=== PATIENT | male | born 1945 | race Two or more races ===

== ENCOUNTER 2017-01-02 04:43 | Inpatient (IN) | payer MEDICARE ==
[2016-12-28 12:07] VITALS: BMI 50.9
--- NOTE | 2017-01-01 09:53 | HP ---
HISTORY AND PHYSICAL Tres Yanez is a 71-year-old patient seen with symptomatic right knee osteoarthritis. After treatment options were discussed, he elected to proceed with right total knee arthroplasty. Consent was obtained. Medical clearance provided by Dr Scott. PAST MEDICAL HISTORY: Hyperlipidemia, asthma. PAST SURGICAL HISTORY: Appendectomy, cholecystectomy. DAILY MEDICATIONS: Aspirin, simvastatin. Spiriva inhaler. ALLERGIES: None reported. SOCIAL HISTORY: Patient denies tobacco use. PHYSICAL EXAMINATION: Evaluation of the right knee in the range of motion is -2/3 to 120 degrees. Tenderness medial joint line. Positive medial Sagrario's. Crepitus medial patellofemoral compartments with range of motion. Pain with patellofemoral compression. Genu varum alignment. Ligaments stable. Hip rotation without pain. Distal neurovascular exam intact. RADIOGRAPHS: Right knee radiographs revealed severe medial moderate patellofemoral compartment osteoarthritis. IMPRESSION: Right knee osteoarthritis. PLAN: Right total knee arthroplasty. Date of surgery 01/02/17. MMODL / IJN: [id number] /
[2017-01-02] MEDS ORDERED: TRANEXAMIC ACID 1,000 MG in SODIUM CHLORIDE 0.9% 100 ML IVPB ONE ×4 (05:00)
[2017-01-02] MEDS ORDERED: ACETAMINOPHEN TAB 500 MG TAB PO ONE (05:00)
[2017-01-02] MEDS ORDERED: ceFAZolin 3 GM in SODIUM CHLORIDE 0.9% 100 ML IVPB ONE (05:00)
[2017-01-02] MEDS ORDERED: MIDAZOLAM 2 MG/2 ML VIAL IV PRN (05:36)
[2017-01-02] MEDS ORDERED: ONDANSETRON 4 MG/2 ML VIAL IVP ONE (05:36)
[2017-01-02] MEDS ORDERED: DEXAMETHASONE SOD PHOSPHATE 10 MG/ML 1 ML VIAL IV ONE (05:36)
[2017-01-02] MEDS ORDERED: HYDROmorphone 1 MG/ML 1 ML SYRINGE IVP PRN ×4 (05:36→12:52)
[2017-01-02] MEDS: MELOXICAM 7.5 MG TAB PO ONE ×2 (08:38→14:23)
[2017-01-02] MEDS: LACTATED RINGERS 1,000 ML IV SCH ×2 (08:51→14:49)
[2017-01-02] MEDS ORDERED: ROPIVACAINE 1,100 MG, SODIUM CHLORIDE 0.9% 330 ML MISCELLANE PRN ×2 (09:26)
--- NOTE | 2017-01-02 09:28 | P.ONQ ---
Anesthesiology Proc Note - PNB - Peripheral Nerve Block Performed Right Adductor Canal Infusion Time Out Performed: Yes Procedure Start Time: :07 Procedure Stop Time: :18 Indication: Requested by physician (For post op pain) Sedation Type: Sedate with meaningful contact maintained Preparation: Sterile Dressing Position: Supine Catheter: Indwelling Needle Types: Bahman Needle Size: 80mm (3") Needle Gauge: 20 Technique: Ultrasound Injectate: 0.5% Ropivacaine (see comment for volume) (20 cc) Blood Aspirated: No Pain Paresthesia on Injection Noted: No
[2017-01-02] MEDS ORDERED: ROPIVACAINE 246.25 MG, EPINEPHrine 0.5 MG, KETOROLAC 30 MG, cloNIDine HCL/PF 80 MCG, WA... MISCELLANE ONE ×5 (09:50)
[2017-01-02] MEDS ORDERED: TRANEXAMIC ACID 1,000 MG/10 ML VIAL ONE (10:28)
[2017-01-02] MEDS ORDERED: diphenhydrAMINE 50 MG/ML 1 ML VIAL ONE (10:28)
[2017-01-02] MEDS ORDERED: MIDAZOLAM 2 MG/2 ML VIAL ONE (10:28)
[2017-01-02] MEDS ORDERED: fentaNYL (PF) 50 MCG/ML 2 ML AMP ONE (10:28)
[2017-01-02] MEDS ORDERED: SODIUM CHLORIDE 0.9% 100 ML BAG ONE (10:28)
[2017-01-02] MEDS ORDERED: ceFAZolin 3,000 MG in SODIUM CHLORIDE 0.9% IRRIGATIO 3,000 ML IRRIGATION ONE (11:10)
[2017-01-02] MEDS ORDERED: LACTATED RINGERS 1,000 ML IV ONE (12:39)
[2017-01-02] MEDS ORDERED: hydrOXYzine PAMOATE 25 MG CAP PO PRN (12:52)
[2017-01-02] MEDS ORDERED: NALOXONE 0.4 MG/ML 1 ML VIAL IV PRN (12:52)
[2017-01-02] MEDS ORDERED: HYDROcodone/APAP 7.5-325MG 1 EACH TAB PO PRN (12:52)
[2017-01-02] MEDS ORDERED: ONDANSETRON 4 MG/2 ML VIAL IVP PRN (12:52)
--- NOTE | 2017-01-02 12:52 | P.OP ---
Date of Procedure: 01/02/17 Preoperative Diagnosis: Right knee osteoarthritis Postoperative Diagnosis: Right knee osteoarthritis Procedure(s) Performed: Right total knee arthroplasty Implants: 1. Tavia persona right size 11 narrow cruciate retaining cemented femur 2. Tavia persona right size G cemented tibia 3. Tavia persona 10 mm medial congruent polyethylene tibial insert 4. Tavia persona 38 mm all polyethylene cemented patella Anesthesia: regional (Adductor canal catheter), local, spinal Surgeon: New Rodrigues Program Director Group Work #1: Abraham Santacruz Estimated Blood Loss (ml): 100 Pathology: other (Bone) Condition: stable Disposition: PACU Indications for Procedure: 71-year-old patient seen with symptomatic right knee osteoarthritis. After treatment options were discussed, he elected to proceed with right total knee arthroplasty. Operative Findings: see description of procedure Description of Procedure: Patient was taken to the operative suite after having an adductor canal catheter placed by the department anesthesia. Patient underwent a spinal anesthetic by the department of anesthesia. Patient was given preoperative IV intake antibiotics and TXA. A well-padded tourniquet was placed about the right lower extremity. The lower extremity was then prepped and draped in the normal sterile orthopedic fashion. The extremity was elevated, a tourniquet was insufflated to 350. A standard anterior incision was made sharply through skin. Dissection was taken down through the subcutaneous soft tissues down to the extensor mechanism. A medial arthrotomy was performed, patella was everted and knee was flexed. There was advanced osteoarthritis noted. A proximal tibial cutting guide was positioned. Proximal tibial cut was made. A distal intramedullary femoral cutting guide was positioned, distal femoral cut made. We placed the appropriate sizing guide and selected the appropriate size. A distal 4-in-1 femoral cutting block was positioned, distal femoral cuts were made. We now placed a trial femoral component into position, along with an appropriate size tibial tray and insert. We now took the knee through range of motion and had full extension good flexion and good overall soft tissue balance noted. The patella was everted and a flush cut made with patellar quad tendon. We templated the patella, appropriate drill holes were made. An appropriate trial patella was positioned, knee was taken through full range of motion with the patella tracking very nicely. The trial patella was removed. Drill holes were made through the femoral component. All trial components were removed after marking off the appropriate rotation of the tibia. Retractors were now positioned along the proximal tibia. An appropriate keel punch was made with the appropriate size tibial guide. At this point appropriate size implants were chosen and opened. The joint was irrigated copiously with pulse lavage mechanical irrigation. The deep soft tissues were infiltrated with local analgesic. We mixed antibiotic methylmethacrylate. Once the methyl methacrylate was ready, the tibial component was cemented into place removing any excess methylmethacrylate. The femoral component was cemented into place removing the removing any excess methylmethacrylate. We then inserted the appropriate size polyethylene tibial insert. We made sure that it was locked into position. We took the knee into full extension, and then back in a flexion making sure we had removed any excess methylmethacrylate. The patellar component was then cemented down and secured with clamp. Excess methylmethacrylate removed. We kept the knee in full extension, patellar clamp in position until methylmethacrylate had hardened. Once it had hardened the patellar clamp was removed. The knee was taken through full range of motion. The patella tracked nicely. There was good soft tissue balancing. The tourniquet was now released. Additional hemostasis was achieved via electrocautery. The wound was irrigated with pulse lavage mechanical irrigation. A second gram of TXA was given. The extensor mechanism was repaired with Vicryl. We checked the repair with range of motion and it was stable. The subcutaneous soft tissues were repaired with Vicryl in layers. The skin was approximated with pernio/Dermabond. Sterile dressings were applied followed by loose web roll and Kenrick bandage. The patient was transferred to a bed, and taken to recovery in stable and satisfactory condition. Francesco QUIROS assisted with the procedure.
--- NOTE | 2017-01-02 13:56 | XR ---
EXAMINATION TYPE: XR knee limited RT DATE OF EXAM: 01/02/2017 COMPARISON: NONE HISTORY: 71-year-old male evaluation for postoperative abnormality and alignment TECHNIQUE: Portable 2 views FINDINGS: Images show placement of right total knee arthroplasty. Both distal femoral and proximal tibial compo nents of the prosthesis are well seated without periprosthetic fracture. Anterior soft tissue swellin g with soft tissue gas as well as small amount of intra-articular air relating to recent operation. A lignment is grossly anatomic. IMPRESSION: Uncomplicated postoperative appearance right total knee arthroplasty.
[2017-01-02] MEDS: traMADol 50 MG TAB PO SCH ×3 (14:24→23:01)
[2017-01-02] MEDS: ceFAZolin 3 GM in SODIUM CHLORIDE 0.9% 100 ML IVPB SCH ×2 (16:33→23:02)
[2017-01-02] MEDS: ALBUTEROL NEBULIZED 2.5 MG/3 ML INHALATION PRN (19:32)
[2017-01-02] MEDS: SENNOSIDES-DOCUSATE SODIUM 1 EACH TAB PO SCH (20:04)
[2017-01-02] MEDS: ATORVASTATIN 10 MG TAB PO SCH (20:04)
[2017-01-03] MEDS: LACTATED RINGERS 1,000 ML IV SCH ×3 (01:42→16:49)
[2017-01-03] MEDS: HYDROcodone/APAP 7.5-325MG 1 EACH TAB PO PRN ×2 (05:47→16:54)
[2017-01-03 07:22] LABS: Basophils % (A) 0 %; CH 26.7; CHCM 30.6; Eosinophils % (A) 0 %; HCT 43.1 % (39.0-53.0); HDW 2.35; HGB 13.2 gm/dL (13.0-17.5); Hypochromasia Slight; Luc # (Auto) 0.19; Luc % (Auto) 2; Lymphocytes # (A) 1.7 k/uL (1.0-4.8); Lymphocytes % (A) 16 %; MCH 26.8 pg (25.0-35.0); MCHC 30.6 g/dL (31.0-37.0); MCV 87.5 fL (80.0-100.0); Mean Platelet Volume 7.3; Monocytes # (A) 0.6 k/uL (0-1.0); Monocytes % (A) 6 %; Neutrophils # (A) 7.8 k/uL (1.3-7.7); Neutrophils % (A) 76 %; RBC 4.92 m/uL (4.30-5.90); RDW 13.9 % (11.5-15.5); WBC 10.2 k/uL (3.8-10.6); WBC (Perox) 10.46
--- NOTE | 2017-01-03 07:22 | CONS ---
CONSULTATION DATE OF CONSULTATION: January 02, 2017. REASON FOR CONSULTATION: Medical management requested by Dr. Rodrigues. CONSULTATION: This is a very pleasant 71-year-old patient of Dr. Scott. The patient has undergone a right total knee arthroplasty. Some pain is present. Chronic stable medical conditions include COPD, hyperlipidemia, arthritis in the left knee. Patient did tolerate supper. Denies any cardiac history. REVIEW OF SYSTEMS: CONSTITUTIONAL: None. HEENT none. Respiratory occasional short of breath. Cardiovascular none. Gastrointestinal none. Genitourinary: None. MUSCULOSKELETAL: Pain in the joints, especially in left knee. Dermatologic, hematologic, lymphatics none. Psychiatry none. Neurological none. PAST MEDICAL HISTORY: COPD, hyperlipidemia, osteoarthritis. PAST SURGICAL HISTORY: Appendectomy, cholecystectomy, tonsillectomy. SOCIAL HISTORY: The patient smoked a pack a day for 20 years stopped 25 years ago. . 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 FAMILY HISTORY: Cancer, type unknown. HOME MEDICATIONS: 1. Spiriva 1 capsule p.o. daily. 2. Zocor 20 mg q.h.s. 3. Aspirin 81 mg p.o. daily. 4. Ventolin HFA 1-2 puffs q.i.d. p.r.n. ALLERGIES: None. PHYSICAL EXAMINATION: Temperature 97.6, pulse 85, respiratory 18, blood pressure 110/72, pulse ox 93% on room air. General appearance propped up lying in bed. BMI 50.9. Eyes pupils equal. Conjunctivae normal. HEENT: Oral cavity normal. Neck short thick. JVD unable to assess. Mass not palpable. Respiratory effort normal. Lungs distant breath sounds. HEART: Sounds muffled no edema. Abdomen distended soft, liver spleen not palpable. Lymphatics: No lymph nodes palpable in neck or axillae. Psychiatry: Alert and oriented times three. Mood and affect normal. Neurological pupils equal. Cranial nerves grossly intact. Power and sensation grossly intact. Extremities right knee with dressing in place. INVESTIGATIONS: No blood work. ASSESSMENT: 1. Right total knee arthroplasty. 2. Chronic obstructive pulmonary disease in an ex-smoker. 3. Hyperlipidemia. 4. Primary osteoarthritis especially of the left knee. 5. Morbid obesity BMI 50.9. PLAN: Patient's home medications are resumed. Patient is getting Lovenox for DVT prophylaxis per Dr. Rodrigues. The patient should see a dietitian for weight loss measures. Thank you Dr. Rodrigues. Copy to Dr. Scott. MMELVIAL / HERBERTN: [id number] /
[2017-01-03] MEDS: ENOXAPARIN 30 MG/0.3 ML SYRINGE SQ SCH ×2 (08:12→20:00)
[2017-01-03] MEDS: traMADol 50 MG TAB PO SCH ×4 (08:13→21:17)
[2017-01-03] MEDS: FAMOTIDINE 20 MG TAB PO SCH (08:13)
[2017-01-03] MEDS: ASPIRIN 81 MG PO SCH (08:13)
[2017-01-03] MEDS: MULTIVITAMINS, THERA 1 EACH TAB PO SCH (08:14)
[2017-01-03] MEDS: IPRATROPIUM 0.5 MG/2.5 ML NEBU INHALATION SCH ×4 (08:50→20:04)
--- NOTE | 2017-01-03 08:55 | P.PN ---
Progress Note - Text Progress Note Date: 01/03/17 71-year-old male status post status post right total knee replacement postoperative day #1 postoperative day #2 he had a right adductor canal catheter patient was up in bed feeling comfortable low concerns and complaints overnight the VAS score of 0/10 now itching and no pain
--- NOTE | 2017-01-03 12:31 | PN ---
PROGRESS NOTE DATE OF SERVICE: 01/03/2017 PRESENTING COMPLAINT: Knee surgery. INTERVAL HISTORY: Patient is status post right knee surgery. Some pain is present. Did work with physical therapy. No nausea, vomiting, did tolerate her breakfast, sitting up on a chair. REVIEW OF SYSTEMS: Done for constitutional, cardiovascular, GI, pulmonary, musculoskeletal; relevant findings as above. CURRENT MEDICATIONS: Reviewed. PHYSICAL EXAMINATION: On examination, afebrile, pulse 82, respirations 18, blood pressure 108/71, pulse ox 93% room air. GENERAL APPEARANCE: Sitting up in a chair, comfortable. EYES: Pupils equal, conjunctivae normal. NECK: JVD not raised. Mass not palpable. RESPIRATORY: Effort normal. LUNGS: Distant breath sounds. CARDIOVASCULAR: Heart sounds muffled, no edema. ABDOMEN: Soft, nontender. Liver and spleen not palpable. PSYCHIATRY: Alert and oriented x3. Mood and affect normal. MUSCULOSKELETAL: Right knee in a dressing. INVESTIGATIONS: White count 10.2, hemoglobin 13.2. ASSESSMENT: 1. Right total knee arthroplasty. 2. Chronic obstructive pulmonary disease in an ex-smoker. 3. Hyperlipidemia. 4. Primary osteoarthritis especially of the left knee. 5. Morbid obesity, body mass index of 50.9. PLAN: Continue current medication and treatment plan. Will follow. Thank you, Dr. Rodrigues. CLARICEL / HERBERTN: [id number] /
--- NOTE | 2017-01-03 13:02 | P.PN ---
Subjective Progress Note Date: 01/03/17 Principal diagnosis: Status post right total knee arthroplasty Patient is seen today resting in his hospital bed, his family is present at bedside. He is ambulating with therapy. The urinary cath was discontinued. Patient's pain is controlled at this time. Denies any headaches, lightheadedness, chest pain, shortness of breath. Objective - Vital Signs Vital signs: Vital Signs Temp 97.6 F 01/03/17 07:00 Pulse 76 01/03/17 09:01 Resp 18 01/03/17 07:00 BP 108/71 01/03/17 07:00 Pulse Ox 93 L 01/03/17 07:00 Intake & Output 01/02/17 01/03/17 01/03/17 18:59 06:59 18:59 Intake Total 1251 2100 180 Output Total 465 900 300 Balance 786 1200 -120 Weight 151.953 kg Intake: IV 1251 Intake, IV Titration 1100 Amount Lactated Ringers 1,000 ml 1000 @ 80 mls/hr IV .[id number] J CARLOS Rx#:[id number] ceFAZolin 3 gm In Sodium 100 Chloride 0.9% 100 ml @ 100 mls/hr IVPB Q8HR J CARLOS Rx#:[id number] Oral 1000 180 Output: Urine 365 900 300 Uretheral (Gaffney) 300 Estimated Blood Loss 100 Other: Voiding Method Indwelling Catheter Indwelling Catheter - Exam Right lower extremity: Incision is clean, dry, and intact. The prineo tape is in good condition. There is minimal soft tissue swelling and ecchymosis surrounding the medial and lateral aspects of the incision. Calf is soft, no tenderness with palpation. Plantar flexion, dorsiflexion, EHL, FHL are intact. Sensory exam to light touch throughout the extremity is intact, dorsal pedis pulses 2+. - Labs CBC & Chem 7: 01/03/17 06:26 Labs: Abnormal Lab Results - Last 24 Hours (Table) 01/03/17 Range/Units 06:26 MCHC 30.6 L (31.0-37.0) g/dL Neutrophils # 7.8 H (1.3-7.7) k/uL Assessment and Plan Plan: Assessment: 1. Postop day #1 status post right total knee arthroplasty Plan: 1. Pain control, continue use of oral medication 2. GI and DVT prophylaxis, checking on Xarelto co-pay for discharge 3. Daily dressing changes/ice and elevate 4. Continue work physical therapy 5. Medical recommendations 6. Discharge planning: Patient may be discharged home today Time with Patient: Less than 30
[2017-01-03] MEDS: ALBUTEROL NEBULIZED 2.5 MG/3 ML INHALATION PRN ×2 (16:38→20:04)
[2017-01-03] MEDS: SENNOSIDES-DOCUSATE SODIUM 1 EACH TAB PO SCH (20:00)
[2017-01-03] MEDS: ATORVASTATIN 10 MG TAB PO SCH (20:00)
[2017-01-04] MEDS ORDERED: HYDROcodone/APAP 7.5-325MG 1 EACH TAB ONE (01:00)
[2017-01-04] MEDS: LACTATED RINGERS 1,000 ML IV SCH ×3 (03:49→17:06)
[2017-01-04] MEDS: HYDROcodone/APAP 7.5-325MG 1 EACH TAB PO PRN ×2 (06:06→13:47)
[2017-01-04] MEDS: IPRATROPIUM 0.5 MG/2.5 ML NEBU INHALATION SCH ×4 (08:46→20:18)
[2017-01-04] MEDS: traMADol 50 MG TAB PO SCH ×4 (09:16→21:30)
[2017-01-04] MEDS: ASPIRIN 81 MG PO SCH (09:16)
[2017-01-04] MEDS: FAMOTIDINE 20 MG TAB PO SCH (09:17)
[2017-01-04] MEDS: ENOXAPARIN 30 MG/0.3 ML SYRINGE SQ SCH ×2 (09:19→21:31)
[2017-01-04] MEDS: MULTIVITAMINS, THERA 1 EACH TAB PO SCH (12:34)
--- NOTE | 2017-01-04 12:35 | P.PN ---
Subjective Progress Note Date: 01/04/17 Principal diagnosis: Status post right total knee arthroplasty Patient is seen today resting in his hospital bed, his family is present at bedside. He is ambulating with therapy. Patient's pain is controlled at this time. Denies any headaches, lightheadedness, chest pain, shortness of breath. Objective - Vital Signs Vital signs: Vital Signs Temp 97.1 F L 01/04/17 08:09 Pulse 88 01/04/17 09:59 Resp 18 01/04/17 09:59 BP 123/82 01/04/17 08:09 Pulse Ox 94 L 01/04/17 08:09 Intake & Output 01/03/17 01/04/17 01/04/17 18:59 06:59 18:59 Intake Total 540 900 400 Output Total 300 300 Balance 240 600 400 Intake: Oral 540 900 400 Output: Urine 300 300 Uretheral (Gaffney) 300 Other: Voiding Method Indwelling Catheter Urinal Urinal # Voids 600 - Exam Right lower extremity: Incision is clean, dry, and intact. The prineo tape is in good condition. There is minimal soft tissue swelling and ecchymosis surrounding the medial and lateral aspects of the incision. Calf is soft, no tenderness with palpation. Plantar flexion, dorsiflexion, EHL, FHL are intact. Sensory exam to light touch throughout the extremity is intact, dorsal pedis pulses 2+. - Labs CBC & Chem 7: 01/03/17 06:26 Assessment and Plan Plan: Assessment: 1. Postop day #2 status post right total knee arthroplasty Plan: 1. Pain control, continue use of oral medication 2. GI and DVT prophylaxis, checking on Xarelto co-pay for discharge 3. Daily dressing changes/ice and elevate 4. Continue work physical therapy 5. Medical recommendations 6. Discharge planning: Patient may be discharged home tomorrow, possibly rehab Time with Patient: Less than 30
[2017-01-04] MEDS: ALBUTEROL NEBULIZED 2.5 MG/3 ML INHALATION PRN ×2 (16:07→20:19)
--- NOTE | 2017-01-04 18:30 | P.PN ---
Progress Note - Text Progress Note Date: 01/04/17 DATE OF SERVICE: 01/04/2017 PRESENTING COMPLAINT: The surgery HISTORY OF PRESENT ILLNESS: 71-year-old male status post right knee surgery. INTERVAL HISTORY: 01/04/2017: Patient lying in bed appears comfortable continues to have some right knee pain but is improving. Agreeable to work with physical therapy. No complaints of nausea or vomiting, tolerating his breakfast ate 100%. REVIEW OF SYSTEMS: Done for constitutional ,cardiovascular, GI, pulmonary with relevant findings as above. CURRENT MEDICATIONS [place], aspirin, Lipitor, Lovenox, Pepcid, ropivacaine, Senokot-S, Ultram. PHYSICAL EXAM VITAL SIGNS: Temperature 97.1, pulse 88, respiratory rate 18, blood pressure 123/82, oxygen saturation 94% on room air. GENERAL APPEARANCE: Lying in bed, not in distress. EYES: Pupils equal. Conjunctiva normal. NECK: JVD not raised. Mass not palpable. RESPIRATORY: Respiratory effort normal. Lungs diminished to auscultation. CARDIOVASCULAR: First and second sounds normal. No edema. ABDOMEN: Soft. Liver and spleen not palpable. No tenderness. No mass palpable. PSYCHIATRY: Alert and oriented x3. Mood and affect normal. MUSCULOSKELETAL: Right knee incision covered with a dry dressing mild swelling noted. INVESTIGATIONS: LABS: None new ASSESSMENT: -Right total knee arthroplasty. -Chronic obstructive pulmonary disease in an ex-smoker. -Hyperlipidemia. -Primary osteoarthritis especially of the left knee. -Morbid obesity body mass index of 50.9. PLAN: Continue working with physical therapy, discharge planning for home or rehab. Continue current Medication and treatment plan. We'll follow HIGH SCHOOL DIRECTOR statement: Patient was seen and examined by nurse practitioner Shalonda Cristobal and all elements of the case discussed with attending Dr. Paige
[2017-01-04] MEDS: SENNOSIDES-DOCUSATE SODIUM 1 EACH TAB PO SCH (21:30)
[2017-01-04] MEDS: ATORVASTATIN 10 MG TAB PO SCH (21:30)
--- NOTE | 2017-01-04 22:36 | PN ---
PROGRESS NOTE DATE OF SERVICE: 01/04/2017. ATTENDING NOTE: The patient seen and examined by me. I discussed with my nurse practitioner, Ms. Cristobal. The patient is comfortable. Pain is controlled. Breathing is stable. EXAMINATION: Afebrile, pulse, respiratory 18, blood pressure 123/82. LUNGS: Slightly decreased. CARDIOVASCULAR: First and second sounds normal. White count 10.2. ASSESSMENT: 1. Right total knee arthroplasty. 2. Chronic obstructive pulmonary disease. PLAN: Continue medication and treatment plan. The patient is stable. MMODL / IJN: [id number] /
[2017-01-05] MEDS: HYDROcodone/APAP 7.5-325MG 1 EACH TAB PO PRN ×2 (00:04→06:36)
[2017-01-05 01:42] VITALS: BP 157/51; RESP 17; TEMP 98.5
[2017-01-05] MEDS: LACTATED RINGERS 1,000 ML IV SCH ×2 (04:35)
[2017-01-05 07:23] LABS: Basophils # (A) 0.1 k/uL (0-0.2); Basophils % (A) 1 %; CH 26.1; CHCM 30.9; Eosinophils # (A) 0.2 k/uL (0-0.7); Eosinophils % (A) 2 %; HCT 38.3 % (39.0-53.0); HDW 2.36; HGB 12.3 gm/dL (13.0-17.5); Hypochromasia Slight; Luc # (Auto) 0.07; Luc % (Auto) 1; Lymphocytes # (A) 2.4 k/uL (1.0-4.8); Lymphocytes % (A) 29 %; MCH 27.4 pg (25.0-35.0); MCHC 32.2 g/dL (31.0-37.0); Monocytes # (A) 0.5 k/uL (0-1.0); Monocytes % (A) 6 %; Neutrophils # (A) 5.2 k/uL (1.3-7.7); Neutrophils % (A) 62 %; RDW 15.2 % (11.5-15.5); WBC 8.5 k/uL (3.8-10.6); WBC (Perox) 8.25
[2017-01-05] MEDS: IPRATROPIUM 0.5 MG/2.5 ML NEBU INHALATION SCH ×2 (08:06→11:39)
[2017-01-05] MEDS ORDERED: HYDROmorphone 0.5 MG/0.5 ML SYRINGE IVP PRN ×3 (08:50→08:51)
[2017-01-05] MEDS: ASPIRIN 81 MG PO SCH (09:04)
[2017-01-05] MEDS: traMADol 50 MG TAB PO SCH ×2 (09:04→13:49)
[2017-01-05] MEDS: FAMOTIDINE 20 MG TAB PO SCH (09:04)
[2017-01-05] MEDS: ENOXAPARIN 30 MG/0.3 ML SYRINGE SQ SCH (09:04)
[2017-01-05] MEDS: MULTIVITAMINS, THERA 1 EACH TAB PO SCH (09:04)
[2017-01-05 11:50] VITALS: PULSE 80
--- NOTE | 2017-01-05 12:36 | P.PN ---
Subjective Progress Note Date: 01/05/17 Principal diagnosis: Status post right total knee arthroplasty Patient is seen today resting in his hospital bed, his family is present at bedside. Patient's pain is controlled at this time. Denies any headaches, lightheadedness, chest pain, shortness of breath. Objective - Vital Signs Vital signs: Vital Signs Temp 98.5 F 01/05/17 00:20 Pulse 80 01/05/17 11:49 Resp 17 01/05/17 00:20 BP 157/51 01/05/17 00:20 Pulse Ox 91 L 01/05/17 00:20 Intake & Output 01/04/17 01/05/17 01/05/17 18:59 06:59 18:59 Intake Total 400 250 Output Total 1150 Balance 400 -1150 250 Intake: Oral 400 250 Output: Urine 1150 Other: Voiding Method Urinal Urinal # Voids 2 1 - Exam Right lower extremity: Incision is clean, dry, and intact. The prineo tape is in good condition. There is minimal soft tissue swelling and ecchymosis surrounding the medial and lateral aspects of the incision. Calf is soft, no tenderness with palpation. Plantar flexion, dorsiflexion, EHL, FHL are intact. Sensory exam to light touch throughout the extremity is intact, dorsal pedis pulses 2+. - Labs CBC & Chem 7: 01/05/17 06:29 Labs: Abnormal Lab Results - Last 24 Hours (Table) 01/05/17 Range/Units 06:29 Hgb 12.3 L (13.0-17.5) gm/dL Hct 38.3 L (39.0-53.0) % Assessment and Plan Plan: Assessment: 1. Postop day #3 status post right total knee arthroplasty Plan: 1. Pain control, continue use of oral medication 2. GI and DVT prophylaxis, Xarelto 10 mg after discharge 3. Daily dressing changes/ice and elevate 4. Continue work physical therapy 5. Medical recommendations 6. Discharge planning: Patient may be discharged home today Time with Patient: Less than 30
--- NOTE | 2017-01-05 12:37 | P.DS ---
Providers Date of admission: 01/02/17 08:12 Expected date of discharge: 01/05/17 Attending physician: New Rodrigues Consults: 01/02/17 12:52 Consult Physician Routine Consulting Provider: Gonzalo Paige Consult Reason/Comments: Medical management Do you want consulting provider notified?: Yes Primary care physician: [place] [facility] Course: Date of admission: 01/02/2017 Date of discharge: 01/05/2017 Admission diagnosis: Status post right total knee arthroplasty Discharge diagnosis: Same Attending physician: Dr. Rodrigues Surgical procedures: Right total knee arthroplasty Brief history: Patient is a 71-year-old male with a history of progressive primary right knee osteoarthritis. At this point patient has failed conservative treatment measures and has opted to proceed with a elective right total knee arthroplasty. Hospital course: Details of patient's surgery can be found in operative report. Patient tolerated the procedure well and was subsequently transported to orthopedic floor. Patient's orthopeidc and medical care was provided daily. Patient had daily laboratory tests performed for evaluation of overall blood counts. Patient had daily physical therapy to include strengthening range of motion as well as education with walker ambulation. Patient had daily CPM usage as part of their physical therapy program. Patient was treated with Lovenox for their postoperative DVT prophylaxis during their inpatient stay. Patient was noted to have a relatively uneventful postoperative course. Patient reported satisfactory pain control with oral pain medications by postoperative day 0. Patient showed satisfactory progress with physical therapy. Patient moved steadily through the program and had no difficulty meeting the goals by postoperative day 3. Given patient's otherwise satisfactory course and having met physical therapy goals, plan is to discharge patient to home on postoperative day 3. Discharge condition/disposition: Patient will be discharged home in stable condition. Discharge medications: Instructions are given on resumption of patient's normal daily medications per primary care recommendation, in addition patient will be prescribed Alma 7.5 mg/325 mg, tramadol 50 mg, Colace 100 mg, Pepcid 20 mg, Xarelto 10 mg. Discharge instructions: 1. Wound care and infection precautions, keep incision dry and covered while showering, no lotions, creams, moisturizers. No soaking, tubs, pools, hottubs. Do not scrub over the incision. 2. Weight-bear as tolerated with walker / cane until follow-up. 3. Ice and elevate when necessary. Do not exceed 20 minutes per hour with ice pack. 4. Utilize compression sleeve until seen at first follow up appointment. 5. Visiting nursing care. 6. Home physical therapy including home CPM. 7. Pain meds and anticoagulants per prescription. 8. Pain medication has potential to cause constipation. Increase oral fluid and fiber intake. Contact primary care provider if you have not had a bowel movement within 48 hours after discharge 9. No anti-inflammatory medication until discussed at first post operative visit, this including Motrin, Aleve, Mobic, Diclofenac. 10. Follow up in office at 2 weeks postop with Francesco Santacruz PA-C 11. Follow up with your primary care doctor 7-10 days after discharge. 12. Contact [facility] with any questions, . Procedures: Right total knee arthroplasty Patient Condition at Discharge: Good Plan - Discharge Summary Discharge Rx Participant: Yes New Discharge Prescriptions: New Rivaroxaban [Xarelto] 10 mg PO DAILY #12 tab Docusate [Colace] 100 mg PO DAILY #30 capsule Famotidine [Pepcid] 20 mg PO DAILY #30 tablet HYDROcodone/APAP 7.5-325MG [[place] 7.5] 1 - 2 each PO Q6HR PRN #60 tab PRN Reason: Pain traMADol HCl [Ultram] 50 mg PO Q6H PRN #40 tab PRN Reason: Pain No Action Tiotropium 18 Mcg/Puff [Spiriva] 1 cap INHALATION RT-DAILY Albuterol Inhaler [Ventolin Hfa Inhaler] 1 - 2 puff INHALATION RT-QID PRN PRN Reason: Dyspnea Simvastatin [Zocor] 20 mg PO HS Aspirin 81 mg PO DAILY Discharge Medication List Albuterol Inhaler [Ventolin Hfa Inhaler] 1 - 2 puff INHALATION RT-QID PRN [History] Aspirin 81 mg PO DAILY 12/28/16 [History] Simvastatin [Zocor] 20 mg PO HS 12/28/16 [History] Tiotropium 18 Mcg/Puff [Spiriva] 1 cap INHALATION RT-DAILY 12/28/16 [History] Rivaroxaban [Xarelto] 10 mg PO DAILY #12 tab 01/03/17 [Rx] Docusate [Colace] 100 mg PO DAILY #30 capsule 01/05/17 [Rx] Famotidine [Pepcid] 20 mg PO DAILY #30 tablet 01/05/17 [Rx] HYDROcodone/APAP 7.5-325MG [[place] 7.5] 1 - 2 each PO Q6HR PRN #60 tab 01/05/17 [ Rx] traMADol HCl [Ultram] 50 mg PO Q6H PRN #40 tab 01/05/17 [Rx] Follow up Appointment(s)/Referral(s): [facility], [NON-STAFF] - As Needed Silver Scott MD [Primary Care Provider] - 1 Week Abraham Santacruz PAC [PHYSICIAN FIELD TECHNICAL SPECIALIST] - 2 Weeks Patient Instructions/Handouts: Knee Replacement (DC) Activity/Diet/Wound Care/Special Instructions: Orthopedic Discharge Instructions: 1. Wound care and infection precautions, keep incision dry and covered while showering, no lotions, creams, moisturizers. No soaking, pools, hot tubs. Do not scrub over incision. 2. Weight-bear as tolerated with walker / cane until follow-up. 3. Ice and elevate when necessary. Do not exceed 20 minutes per hour with ice pack. 4. Utilize compression sleeve until seen at first follow up appointment. 5. Visiting nursing care. 6. Home physical therapy including home CPM. 7. Pain meds and anticoagulants per prescription. 8. Pain medication has potential to cause constipation. Increase oral fluid and fiber intake. Contact primary care provider if you have not had a bowel movement within 48 hours after discharge. 9. No anti-inflammatory medication until discussed at first post operative visit, this including Motrin, Aleve, Mobic, Diclofenac. 10. Follow up in office at 2 weeks postop with Francesco Santacruz PA-C 11. Follow up with your primary care doctor 7-10 days after discharge. 12. Contact [facility] with any questions, . Discharge Disposition: HOME WITH HOME HEALTH SERVICES
--- NOTE | 2017-01-05 17:37 | PN ---
PROGRESS NOTE DATE OF SERVICE: January 05, 2017. PRESENTING COMPLAINT: Knee surgery. INTERVAL HISTORY: Patient status post knee surgery. Pain is controlled. No nausea, vomiting, did work with therapy. Keen to go home. No new issues. REVIEW OF SYSTEMS: Done for constitutional, cardiovascular, GI, pulmonary, musculoskeletal; relevant findings as above. CURRENT MEDICATIONS: Reviewed. PHYSICAL EXAMINATION: Temperature 98.5, pulse 94, respiration 16, blood pressure 127/51, pulse ox 91% on room air. GENERAL APPEARANCE: Sitting up comfortable. EYES: Pupils equal. Conjunctivae normal. Neck JVD unable to assess. Mass not palpable. Respiratory effort normal. Lungs distant breath sounds. Cardiovascular first and second sounds normal. No edema. ABDOMEN: Soft, nontender. Liver and spleen not palpable. Psychiatry: Alert and oriented x3. Mood and affect normal. INVESTIGATIONS: White count 8.5. ASSESSMENT: 1. Right total knee arthroplasty. 2. Chronic obstructive pulmonary disease in an ex-smoker. 3. Hyperlipidemia. 4. Primary osteoarthritis especially of the left knee. 5. Morbid obesity, BMI 50.9. PLAN: Patient doing well. Have discharged. Follow with the family doctor. MMODL / IJN: [id number] /
== END 2017-01-05 16:44 | disposition home health service (06) | DRG 470 ==
LOC: 2ORMAIN 08:12 → 3SUR 13:49
PROVIDERS: ADMIT Orthopaedic Surgery; ATTEND Orthopaedic Surgery
PROC: 0SRC0J9 Replacement of Right Knee Joint with Synthetic Substitute, Cemented, Open Approach (ICD-10-PCS; principal; 2017-01-02 10:20)
DX: M17.11 Unilateral primary osteoarthritis, right knee (principal); E66.01 Morbid (severe) obesity due to excess calories; J44.9 Chronic obstructive pulmonary disease, unspecified; E78.5 Hyperlipidemia, unspecified; Z79.82 Long term (current) use of aspirin; Z79.899 Other long term (current) drug therapy; Z87.891 Personal history of nicotine dependence; Z79.51 Long term (current) use of inhaled steroids
CPT/HCPCS: 85025; 88300; 94640; 94760

== ENCOUNTER 2021-06-13 19:20 | Inpatient (IN) | payer MEDICARE ==
--- NOTE | 2021-06-13 21:04 | XR ---
EXAMINATION TYPE: XR chest 2V DATE OF EXAM: 06/13/2021 COMPARISON: NONE HISTORY: TECHNIQUE: 2 views FINDINGS: There is no heart failure nor confluent pneumonic infiltrate. Costophrenic angles are clear . There are no hilar masses. IMPRESSION: No active cardiopulmonary disease.
[2021-06-13] MEDS ORDERED: DILTIAZEM DRIP BOLUS FROM BAG 1 MG SOLN IV ONE (23:09)
--- NOTE | 2021-06-13 23:12 | ED ---
General Adult HPI - General Chief complaint: Shortness of Breath Stated complaint: SOB Time Seen by Provider: 06/13/21 22:38 Source: patient, RN notes reviewed, old records reviewed Mode of arrival: ambulatory Limitations: no limitations - History of Present Illness Initial comments: 76-year-old male presenting for evaluation of cough and dyspnea. Patient states his cough is productive of white sputum. He's had no fever. No central chest pain. Patient has had increased bilateral lower extremity edema. Patient denies history of atrial fibrillation. He denies history of CHF. - Related Data Home Medications Medication Instructions Recorded Confirmed Albuterol Inhaler (Mhu) [Ventolin 1 - 2 puff INHALATION RT-QID PRN 12/28/16 01/02/17 Hfa Inhaler] Aspirin 81 mg PO DAILY 12/28/16 01/02/17 Simvastatin [Zocor] 20 mg PO HS 12/28/16 01/02/17 Tiotropium 18 Mcg/Puff [Spiriva] 1 cap INHALATION RT-DAILY 12/28/16 01/02/17 Previous Rx's Medication Instructions Recorded Rivaroxaban [Xarelto] 10 mg PO DAILY #12 tab 01/03/17 Docusate [Colace] 100 mg PO DAILY #30 capsule 01/05/17 Famotidine [Pepcid] 20 mg PO DAILY #30 tablet 01/05/17 HYDROcodone/APAP 7.5-325MG [[place] 1 - 2 each PO Q6HR PRN #60 tab 01/05/17 7.5] traMADol HCl [Ultram] 50 mg PO Q6H PRN #40 tab 01/05/17 Allergies Allergy/AdvReac Type Severity Reaction Status Date / Time No Known Allergies Allergy Verified 06/13/21 20:25 Review of Systems ROS Statement: Those systems with pertinent positive or pertinent negative responses have been documented in the HPI. ROS Other: All systems not noted in ROS Statement are negative. Past Medical History Past Medical History: COPD, Hyperlipidemia, Osteoarthritis (OA) History of Any Multi-Drug Resistant Organisms: None Reported Past Surgical History: Appendectomy, Cholecystectomy, Tonsillectomy Past Anesthesia/Blood Transfusion Reactions: No Reported Reaction Past Psychological History: No Psychological Hx Reported Smoking Status: Never smoker Past Alcohol Use History: Occasional Past Drug Use History: None Reported - Past Family History Mother Family Medical History: Cancer General Exam Limitations: no limitations General appearance: alert, in distress Head exam: Present: atraumatic, normocephalic Eye exam: Present: normal appearance, PERRL ENT exam: Present: normal exam Neck exam: Present: normal inspection. Absent: tenderness, meningismus Respiratory exam: Present: respiratory distress, rales, accessory muscle use, decreased breath sounds Cardiovascular Exam: Present: tachycardia, irregular rhythm GI/Abdominal exam: Present: soft, distended. Absent: tenderness, guarding, rebound Extremities exam: Present: normal capillary refill, pedal edema Neurological exam: Present: alert, oriented X3, CN II-XII intact. Absent: motor sensory deficit Psychiatric exam: Present: normal affect, normal mood Skin exam: Present: warm, dry, intact Course Vital Signs 06/13/21 06/13/21 06/13/21 20:21 23:00 23:18 Temperature 97.1 F L Pulse Rate 77 149 H Respiratory 18 30 H 30 H Rate Blood Pressure 141/104 137/101 O2 Sat by Pulse 93 L 97 Oximetry 06/13/21 23:46 Temperature Pulse Rate 144 H Respiratory 30 H Rate Blood Pressure 124/91 O2 Sat by Pulse 97 Oximetry EKG Findings - EKG Comments: EKG Findings:: EKG: Atrial fibrillation with RVR rate of 156, QRS duration 137, QTC 379, no ST segment elevation. Medical Decision Making - Medical Decision Making 76 yo male presenting with increased dyspnea, lower extremity edema. Patient's is in A. fib with RVR which is a new diagnosis for this patient. He has s ignificant pedal edema. Suspected new onset CHF. He also has history of COPD. Chest x-ray is relatively clear with some pulmonary congestion no effusion or onur edema. Patient is started on Cardizem and heparin. He has normal CBC, normal CMP, Ha moderately elevated BNP negative troponin. Case discussed with Dr. Valadez, he will be admitted with new onset atrial fibrillation, suspect new-onset CHF, echo will be obtained. Cardiology placed on consult. - Lab Data Result diagrams: 06/13/21 23:15 06/13/21 23:15 Lab Results 06/13/21 06/13/21 06/13/21 Range/Units 23:15 23:15 23:15 WBC 9.8 (3.8-10.6) k/uL RBC 5.37 (4.30-5.90) m/uL Hgb 14.4 (13.0-17.5) gm/dL Hct 46.2 (39.0-53.0) % MCV 86.1 (80.0-100.0) fL MCH 26.8 (25.0-35.0) pg MCHC 31.1 (31.0-37.0) g/dL RDW 14.4 (11.5-15.5) % Plt Count 229 (150-450) k/uL MPV 8.1 Neutrophils % 63 % Lymphocytes % 25 % Monocytes % 5 % Eosinophils % 5 % Basophils % 1 % Neutrophils # 6.2 (1.3-7.7) k/uL Lymphocytes # 2.4 (1.0-4.8) k/uL Monocytes # 0.5 (0-1.0) k/uL Eosinophils # 0.5 (0-0.7) k/uL Basophils # 0.1 (0-0.2) k/uL Hypochromasia Slight PT 10.8 (9.0-12.0) sec INR 1.0 (<1.2) APTT 26.1 (22.0-30.0) sec Sodium 136 L (137-145) mmol/L Potassium 4.4 (3.5-5.1) mmol/L Chloride 100 (98-107) mmol/L Carbon Dioxide 30 (22-30) mmol/L Anion Gap 6 mmol/L BUN 16 (9-20) mg/dL Creatinine 1.10 (0.66-1.25) mg/dL Est GFR (CKD-EPI)AfAm 75 (>60 ml/min/1.73 sqM) Est GFR (CKD-EPI)NonAf 65 (>60 ml/min/1.73 sqM) Glucose 124 H (74-99) mg/dL Plasma Lactic Acid Tarik (0.7-2.0) mmol/L Calcium 9.1 (8.4-10.2) mg/dL Magnesium 2.0 (1.6-2.3) mg/dL Total Bilirubin 1.0 (0.2-1.3) mg/dL AST 21 (17-59) U/L ALT 20 (4-49) U/L Alkaline Phosphatase 91 (38-126) U/L Troponin I (0.000-0.034) ng/mL NT-Pro-B Natriuret Pep pg/mL Total Protein 7.3 (6.3-8.2) g/dL Albumin 3.8 (3.5-5.0) g/dL 06/13/21 06/13/21 06/13/21 Range/Units 23:15 23:15 23:15 WBC (3.8-10.6) k/uL RBC (4.30-5.90) m/uL Hgb (13.0-17.5) gm/dL Hct (39.0-53.0) % MCV (80.0-100.0) fL MCH (25.0-35.0) pg MCHC (31.0-37.0) g/dL RDW (11.5-15.5) % Plt Count (150-450) k/uL MPV Neutrophils % % Lymphocytes % % Monocytes % % Eosinophils % % Basophils % % Neutrophils # (1.3-7.7) k/uL Lymphocytes # (1.0-4.8) k/uL Monocytes # (0-1.0) k/uL Eosinophils # (0-0.7) k/uL Basophils # (0-0.2) k/uL Hypochromasia PT (9.0-12.0) sec INR (<1.2) APTT (22.0-30.0) sec Sodium (137-145) mmol/L Potassium (3.5-5.1) mmol/L Chloride (98-107) mmol/L Carbon Dioxide (22-30) mmol/L Anion Gap mmol/L BUN (9-20) mg/dL Creatinine (0.66-1.25) mg/dL Est GFR (CKD-EPI)AfAm (>60 ml/min/1.73 sqM) Est GFR (CKD-EPI)NonAf (>60 ml/min/1.73 sqM) Glucose (74-99) mg/dL Plasma Lactic Acid Tarik 1.0 (0.7-2.0) mmol/L Calcium (8.4-10.2) mg/dL Magnesium (1.6-2.3) mg/dL Total Bilirubin (0.2-1.3) mg/dL AST (17-59) U/L ALT (4-49) U/L Alkaline Phosphatase (38-126) U/L Troponin I 0.020 (0.000-0.034) ng/mL NT-Pro-B Natriuret Pep 1770 pg/mL Total Protein (6.3-8.2) g/dL Albumin (3.5-5.0) g/dL Critical Care Time Critical Care Time: Yes Total Critical Care Time: 35 Disposition Clinical Impression: Congestive heart failure, New onset atrial fibrillation, Atrial fibrillation with RVR Disposition: ADMITTED IP TO THIS [facility] Condition: Stable Is patient prescribed a controlled substance at d/c from ED?: No Referrals: Jeanette An MD [Primary Care Provider] - 1-2 days Time of Disposition: 00:48
[2021-06-13] MEDS: DILTIAZEM 125 MG in SODIUM CHLORIDE 0.9% 100 ML IV SCH (23:32)
[2021-06-13 23:36] LABS: Basophils # (A) 0.1 k/uL (0-0.2); Basophils % (A) 1 %; Eosinophils # (A) 0.5 k/uL (0-0.7); Eosinophils % (A) 5 %; HCT 46.2 % (39.0-53.0); HGB 14.4 gm/dL (13.0-17.5); Hypochromasia Slight; Lymphocytes # (A) 2.4 k/uL (1.0-4.8); Lymphocytes % (A) 25 %; MCH 26.8 pg (25.0-35.0); MCHC 31.1 g/dL (31.0-37.0); MCV 86.1 fL (80.0-100.0); Mean Platelet Volume 8.1; Monocytes # (A) 0.5 k/uL (0-1.0); Monocytes % (A) 5 %; Neutrophils # (A) 6.2 k/uL (1.3-7.7); Neutrophils % (A) 63 %; Platelet Count 229 k/uL (150-450); RBC 5.37 m/uL (4.30-5.90); RDW 14.4 % (11.5-15.5); WBC 9.8 k/uL (3.8-10.6)
[2021-06-13 23:41] LABS: Partial Thromboplastin Time 26.1 sec (22.0-30.0); Prothrombin Time 10.8 sec (9.0-12.0)
[2021-06-13 23:43] LABS: Albumin 3.8 g/dL (3.5-5.0); Calcium 9.1 mg/dL (8.4-10.2); Potassium 4.4 mmol/L (3.5-5.1); Total Protein 7.3 g/dL (6.3-8.2)
[2021-06-14] MEDS ORDERED: FUROSEMIDE 10 MG/ML 4 ML VIAL IV STA ×2 (00:17→11:38)
[2021-06-14] MEDS ORDERED: ASPIRIN 325 MG TAB PO STA (00:17)
[2021-06-14] MEDS ORDERED: HEPARIN SODIUM 1,000 UN/ML (10ML VL) IV ONE (00:17)
[2021-06-14] MEDS ORDERED: HEPARIN SODIUM 1,000 UN/ML (10ML VL) IV PRN (00:17)
[2021-06-14] MEDS ORDERED: NALOXONE 0.4 MG/ML 1 ML VIAL IV PRN (00:26)
[2021-06-14] MEDS ORDERED: ACETAMINOPHEN TAB 325 MG TAB PO PRN (00:26)
[2021-06-14] MEDS ORDERED: HEPARIN SOD,PORK IN 0.45% NACL 25,000 UNIT in 0.45% NACL 1 250ML.BAG IV SCH (00:30)
--- NOTE | 2021-06-14 00:41 | P.HPIM ---
History of Present Illness H&P Date: 06/14/21 Patient is 76-year-old male with a PMH of COPD and hyperlipidemia who presents to the emergency room with complaints of shortness of breath. The patient reports that his symptoms started roughly a week ago with a nonproductive cough, which then progressed to shortness of breath and lower extremity edema. The patient denies experiencing orthopnea or PND but states that he is unable to sleep due to his shortness of breath. Reports using only one pillow. He also takes Lasix 20 mg daily for the past several years for chronic lower extremity mild edema but denies ever being diagnosed with congestive heart failure. Also denied experiencing chest discomfort, nausea, vomiting, diaphoresis, abdominal pain, diarrhea. The patient reports only using albuterol inhaler sparingly at home over the past few years. The patient also reports that he developed an abnormal rhythm roughly 2 years ago, causing shortness of breath, at which time EMS reportedly shocked the patient in the ambulance en-route to [facility]. He denies ever having a history of A. fib or requiring blood thinne rs. In the emergency room a chest x-ray did reveal cardiomegaly with laboratory evaluation remarkable for troponin of 0.020. EKG revealed Afib with RVR @ 156 bpm. Of note, the patient's previous home med list did include Xarelto which he states hes no longer taking, and does not recall why he was on it. Review of systems: Pertinent positives and negatives as discussed in HPI, a complete review of systems was performed and all other systems are negative. Physical examination: General: non toxic, no distress, in mild respiratory distress, morbidly obese Derm: no unusual rashes/lesions no unusual ecchymoses, warm, dry Head: atraumatic, normocephalic, symmetric Eyes: EOMI, no lid lag, anicteric sclera, pupils equal round reactive to light ENT: Nose and ears atraumatic, no thrush, no pharyngeal erythema Neck: No thyromegaly, no cervical lymphadenopathy, trachea midline, supple Mouth: no lip lesion, mucus membranes moist Cardiovascular: Irregularly irregular, no murmur, positive posterior tibial pulse bilateral, 2+ bilateral lower extremity pitting edema to thighs, capillary refill less than 2 seconds Lungs: Diffuse wheezing with some rhonchi, no accessory muscle use Abdominal: soft, nontender to palpation, no guarding, no appreciable organomegaly, normal bowel sounds Ext: no gross muscle atrophy, muscle strength 5 out of 5 in all 4 extremities grossly, no contractures, Neuro: CN II-XI grossly intact, light touch intact all 4 extremities, finger to nose within normal limits, Psych: Alert, oriented, appropriate affect Assessment/plan Shortness of breath, suspected multifactorial secondary to A. fib with components of CHF and COPD exacerbations -Follow-up proBNP -Echocardiogram -Cardiology consult -Continue with Cardizem infusion -Continue Lasix IV 40 mg every 12 hourly -Monitor electrolytes -Heparin infusion -DuoNeb's -Cardiac monitoring DVT prophylaxis -Heparin infusion The patient is admitted with an anticipated greater than 2 midnight stay for evaluation of Afib with rvr CODE STATUS: Full Code Discussed with: Patient Anticipated discharge date: 06/[address]: Home Past Medical History Past Medical History: COPD, Hyperlipidemia, Osteoarthritis (OA) History of Any Multi-Drug Resistant Organisms: None Reported Past Surgical History: Appendectomy, Cholecystectomy, Tonsillectomy Past Anesthesia/Blood Transfusion Reactions: No Reported Reaction Past Psychological History: No Psychological Hx Reported Smoking Status: Never smoker Past Alcohol Use History: Occasional Past Drug Use History: None Reported - Past Family History Mother Family Medical History: Cancer Medications and Allergies Home Medications Medication Instructions Recorded Confirmed Type Albuterol Inhaler (Mhu) [Ventolin 1 - 2 puff INHALATION RT-QID PRN 12/28/16 01/02/17 History Hfa Inhaler] Aspirin 81 mg PO DAILY 12/28/16 01/02/17 History Simvastatin [Zocor] 20 mg PO HS 12/28/16 01/02/17 History Tiotropium 18 Mcg/Puff [Spiriva] 1 cap INHALATION RT-DAILY 12/28/16 01/02/17 History Rivaroxaban [Xarelto] 10 mg PO DAILY #12 tab 01/03/17 Rx Docusate [Colace] 100 mg PO DAILY #30 capsule 01/05/17 Rx Famotidine [Pepcid] 20 mg PO DAILY #30 tablet 01/05/17 Rx HYDROcodone/APAP 7.5-325MG [[place] 1 - 2 each PO Q6HR PRN #60 tab 01/05/17 Rx 7.5] traMADol HCl [Ultram] 50 mg PO Q6H PRN #40 tab 01/05/17 Rx Allergies Allergy/AdvReac Type Severity Reaction Status Date / Time No Known Allergies Allergy Verified 06/13/21 20:25 Physical Exam Vitals: Vital Signs Temp Pulse Resp BP Pulse Ox 06/13/21 23:46 144 H 30 H 124/91 97 06/13/21 23:18 149 H 30 H 137/101 97 06/13/21 23:00 30 H 06/13/21 20:21 97.1 F L 77 18 141/104 93 L Intake and Output 06/13/21 06/13/21 06/14/21 14:59 22:59 06:59 Other: Weight 152.861 kg Results CBC & Chem 7: 06/13/21 23:15 06/13/21 23:15 Labs: Abnormal Lab Results - Last 24 Hours (Table) 06/13/21 Range/Units 23:15 Sodium 136 L (137-145) mmol/L Glucose 124 H (74-99) mg/dL
[2021-06-14] MEDS ORDERED: ALBUTEROL NEBULIZED 2.5 MG/3 ML INHALATION STA (00:43)
[2021-06-14] MEDS ORDERED: IPRATROPIUM-ALBUTEROL 3 ML NEB INHALATION STA (00:43)
[2021-06-14] MEDS ORDERED: predniSONE 20 MG TAB PO STA (00:43)
[2021-06-14] MEDS: IPRATROPIUM-ALBUTEROL 3 ML NEB INHALATION PRN (05:17)
[2021-06-14] MEDS ORDERED: IPRATROPIUM-ALBUTEROL 3 ML NEB ONE (09:00)
[2021-06-14] MEDS ORDERED: FUROSEMIDE 10 MG/ML 4 ML VIAL ONE (09:00)
[2021-06-14] MEDS ORDERED: FUROSEMIDE 10 MG/ML 4 ML VIAL IV SCH (09:00)
[2021-06-14] MEDS: IPRATROPIUM-ALBUTEROL 3 ML NEB INHALATION SCH ×4 (11:31→20:31)
--- NOTE | 2021-06-14 12:06 | CONS ---
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, developed cough, shortness of breath, leg edema, productive sputum, and yesterday developed sustained palpitations, due to which he came to the emergency room, where he is being admitted to hospital. At the time of my evaluation, patient is in atrial fibrillation with poorly controlled ventricular rate, stable hemodynamically. He appears short of breath and has bilateral leg edema. He is on IV Cardizem and intravenous heparin. Still has poorly controlled ventricular rate. We do not have access to his labs or any other records, as the [employer] computer system is down, and we are functioning with bare minimum available information and the data that the nurse has with her. The patient seems to have been a combination of problems, including acute-onset congestive heart failure, COPD exacerbation and new-onset atrial fibrillation with poorly controlled ventricular rate. The patient opted to come to [facility], as he thinks [facility] is not a good enough hospital for him. PAST MEDICAL HISTORY: Significant for COPD, hypertension, cardiac arrhythmia. MEDICATIONS: Medications are as charted. ALLERGIES: As charted. FAMILY HISTORY: Negative for premature coronary artery disease. SOCIAL HISTORY: Negative for current smoking, ETOH abuse or drug abuse. REVIEW OF SYSTEMS: HEENT is unremarkable. CARDIAC: As described above. RESPIRATORY: As described above. GI: Negative. GENITOURINARY: Negative. ALLERGY/IMMUNOLOGY: Negative. SKIN: Negative. MUSCULOSKELETAL: Significant for arthritis. PSYCHOSOCIAL: Negative. DERMATOLOGY: Negative. CONSTITUTIONAL: Negative. ONCOLOGICAL: Negative. INSPECTOR MACHINE PARTS: Negative. PSYCHOSOCIAL: Negative. PHYSICAL EXAMINATION: He is comfortable at rest. Heart rate is 140 beats per minute. Blood pressure is 120/80, respiratory rate is 24. There is no jugular venous distention. Chest exam reveals bilateral diffuse rhonchi. Heart exam reveals first and second heart sounds, irregular rhythm. No murmur. Abdomen is soft, non-tender. Examination of extremities reveals bilateral moderate pitting edema. Foot pulses are intact. Labs are not available at this time. ASSESSMENT: 1. Persistent atrial fibrillation with poorly controlled ventricular rate. 2. Acute-onset congestive heart failure. 3. Chronic obstructive pulmonary disease exacerbation. PLAN: I will increase the dose of Cardizem for better rate control, continue IV heparin. Start him on Eliquis or Xarelto, depending on what he is covered for. Review the echocardiogram once it is done and the results are available. Resume the beta-raina that he is on. Increase the dose of Lasix. Patient needs nebulizers and probably antibiotics. Will decide on further course of action based on how he responds to therapy. MMODL / IJN: [id number] /
[2021-06-14] MEDS: DILTIAZEM 125 MG in SODIUM CHLORIDE 0.9% 100 ML IV SCH ×2 (13:02→23:16)
[2021-06-14] MEDS ORDERED: carvediloL 3.125 MG TAB PO STA (13:03)
[2021-06-14] MEDS: APIXABAN 5 MG TAB PO SCH ×2 (13:19→20:35)
[2021-06-14] MEDS: FUROSEMIDE 10 MG/ML 4 ML VIAL IV SCH ×2 (15:29→23:16)
[2021-06-14] MEDS: carvediloL 6.25 MG TAB PO SCH (16:48)
[2021-06-14] MEDS ORDERED: carvediloL 3.125 MG TAB PO SCH (17:30)
[2021-06-15] MEDS: carvediloL 6.25 MG TAB PO SCH (05:54)
[2021-06-15] MEDS: IPRATROPIUM-ALBUTEROL 3 ML NEB INHALATION SCH ×4 (07:28→19:40)
[2021-06-15 07:46] LABS: Basophils % (A) 1 %; Eosinophils # (A) 0.3 k/uL (0-0.7); Eosinophils % (A) 3 %; HCT 43.2 % (39.0-53.0); HGB 13.3 gm/dL (13.0-17.5); Hypochromasia Moderate; Lymphocytes # (A) 1.5 k/uL (1.0-4.8); Lymphocytes % (A) 17 %; MCHC 30.9 g/dL (31.0-37.0); MCV 87.6 fL (80.0-100.0); Mean Platelet Volume 7.8; Monocytes # (A) 0.4 k/uL (0-1.0); Monocytes % (A) 5 %; Neutrophils # (A) 6.4 k/uL (1.3-7.7); Neutrophils % (A) 73 %; Platelet Count 223 k/uL (150-450); RBC 4.94 m/uL (4.30-5.90); RDW 14.3 % (11.5-15.5); WBC 8.7 k/uL (3.8-10.6)
[2021-06-15 07:51] LABS: INR 1.1 (<1.2); Prothrombin Time 11.6 sec (9.0-12.0)
[2021-06-15 08:02] LABS: Calcium 8.5 mg/dL (8.4-10.2); Potassium 4.5 mmol/L (3.5-5.1)
[2021-06-15] MEDS: FUROSEMIDE 10 MG/ML 4 ML VIAL IV SCH ×3 (08:15→23:31)
[2021-06-15] MEDS: APIXABAN 5 MG TAB PO SCH ×2 (08:15→20:43)
[2021-06-15] MEDS ORDERED: carvediloL 6.25 MG TAB PO STA (12:15)
--- NOTE | 2021-06-15 12:19 | P.PN ---
Subjective Progress Note Date: 06/15/21 HISTORY OF PRESENT ILLNESS: Patient examined this morning the intensive care unit. Patient is sitting up in the chair. Patient denies chest pain or pressure. He reports improvement in his shortness of breath. He does report a frequent productive cough this morning. He remains on IV Lasix 40 mg every 8 hours. Lower extremity edema is improving. Telemetry reveals atrial fibrillation with a heart rate in the 80s. He remains on IV Cardizem. PHYSICAL EXAM: VITAL SIGNS: Reviewed. GENERAL: Well-developed in no acute distress. NECK: Supple. No JVD or thyromegaly LUNGS: Respirations even and unlabored. Lungs diminished with expiratory wheezing HEART: Irregular rate and rhythm. S1 and S2 heard. EXTREMITIES: Normal range of motion. No clubbing or cyanosis. Peripheral pulses intact. 2+ bilateral lower extremity edema ASSESSMENT: New-onset paroxysmal atrial fibrillation with RVR New-onset congestive heart failure, type unknown, echo pending Acute COPD exacerbation PLAN: 2-D echo ordered. Await results Continue IV Lasix Monitor kidney function Accurate I&O Daily weights Discontinue IV Cardizem Increase carvedilol to 12.5 mg twice a day Continue telemetry monitoring Further recommendations pending patient course Nurse practitioner note has been reviewed by physician. Signing provider agrees with the documented findings, assessment, and plan of care. Objective - Vital Signs Vital signs: Vital Signs Temp 97.7 F 06/15/21 12:00 Pulse 73 06/15/21 12:00 Resp 20 06/15/21 12:00 BP 105/66 06/15/21 12:00 Pulse Ox 94 L 06/15/21 12:00 Intake & Output 06/14/21 06/15/21 06/15/21 18:59 06:59 18:59 Intake Total 222.264 102.333 112.167 Output Total 850 Balance 222.264 -747.667 112.167 Weight 152.861 kg Intake: Intake, IV Titration 222.264 102.333 112.167 Amount Diltiazem 125 mg In 76.916 102.333 112.167 Sodium Chloride 0.9% 100 ml @ 10 MG/HR 10 mls/hr IV .[id number] J [facility] Rx#: [id number] Heparin Sod,Pork in 0.45% 145.348 NaCl 25,000 unit In 0.45 % NaCl 1 250ml.bag @ 6. 5419 UNITS/KG/HR 10 mls/ hr IV .Q24H [facility] Rx#: [id number] Output: Urine 850 Other: Voiding Method Urinal Urinal - Labs CBC & Chem 7: 06/15/21 06:40 06/15/21 06:40 Labs: Abnormal Lab Results - Last 24 Hours (Table) 06/14/21 06/15/21 06/15/21 Range/Units 12:24 06:40 06:40 MCHC 30.9 L (31.0-37.0) g/dL APTT 73.2 H (22.0-30.0) sec Sodium 135 L (137-145) mmol/L Chloride 95 L (98-107) mmol/L Carbon Dioxide 31 H (22-30) mmol/L BUN 21 H (9-20) mg/dL Glucose 133 H (74-99) mg/dL
--- NOTE | 2021-06-15 13:14 | P.PN ---
Subjective Progress Note Date: 06/15/21 patient has no new complaints today. He reports improvement in breathing. Gen: awake, alert HEENT: normocephalic, atraumatic, good hearing acuity, moist mucous membranes Resp: good air exchange, breathing comfortably with no accessory muscle use CVS: good distal perfusion x 4, positive JVD GI: soft, NTTP, ND : no SPT, no CVAT, villalba catheter notpresent MSK: positive pitting edema, no clubbing Neuro: non-focal, moving all extremities Psych: cooperative, euthymic mood Assessment/plan: Shortness of breath, suspected multifactorial secondary to A. fib with components of CHF and COPD exacerbations -Follow-up proBNP -Echocardiogram -Cardiology consult -Continue with Cardizem infusion -Continue Lasix IV 40 mg every 12 hourly -Monitor electrolytes -Heparin infusion -DuoNeb's -Cardiac monitoring DVT prophylaxis -Heparin infusion The patient is admitted with an anticipated greater than 2 midnight stay for evaluation of Afib with rvr CODE STATUS: Full Code Discussed with: Patient Anticipated discharge date: 06/[address]: Home Objective - Vital Signs Vital signs: Vital Signs Temp 97.7 F 06/15/21 12:00 Pulse 73 06/15/21 12:00 Resp 20 06/15/21 12:00 BP 105/66 06/15/21 12:00 Pulse Ox 94 L 06/15/21 12:00 Intake & Output 06/14/21 06/15/21 06/15/21 18:59 06:59 18:59 Intake Total 222.264 102.333 112.167 Output Total 850 Balance 222.264 -747.667 112.167 Weight 152.861 kg Intake: Intake, IV Titration 222.264 102.333 112.167 Amount Diltiazem 125 mg In 76.916 102.333 112.167 Sodium Chloride 0.9% 100 ml @ 10 MG/HR 10 mls/hr IV .[id number] J [facility] Rx#: [id number] Heparin Sod,Pork in 0.45% 145.348 NaCl 25,000 unit In 0.45 % NaCl 1 250ml.bag @ 6. 5419 UNITS/KG/HR 10 mls/ hr IV .Q24H [facility] Rx#: [id number] Output: Urine 850 Other: Voiding Method Urinal Urinal - Labs CBC & Chem 7: 06/15/21 06:40 06/15/21 06:40 Labs: Abnormal Lab Results - Last 24 Hours (Table) 06/14/21 06/15/21 06/15/21 Range/Units 12:24 06:40 06:40 MCHC 30.9 L (31.0-37.0) g/dL APTT 73.2 H (22.0-30.0) sec Sodium 135 L (137-145) mmol/L Chloride 95 L (98-107) mmol/L Carbon Dioxide 31 H (22-30) mmol/L BUN 21 H (9-20) mg/dL Glucose 133 H (74-99) mg/dL
[2021-06-15] MEDS: carvediloL 12.5 MG TAB PO SCH (16:15)
--- NOTE | 2021-06-15 17:14 | CA ---
Transthoracic Echo Report Name: Tres Yanez Age: 76 Gender: M : 1945 Exam Date: 06/14/2021 11:47 Exam Location: [facility] Ht (in): 68 Wt (lb): 337 Ordering Physician: Jan Salas MD Attending/Referring Phys: [id number], Maritza Chief Revenue Officer Charmaine Camacho RDCS Procedure CPT: Indications: chf Cardiac Hx: Technical Quality: Poor Contrast 1: Total Dose (mL): Contrast 2: Total Dose (mL): MEASUREMENTS (Male / Female) Normal Values 2D ECHO LV Diastolic Diameter PLAX 5.3 cm 4.2 - 5.9 / 3.9 - 5.3 cm LV Systolic Diameter PLAX 3.6 cm IVS Diastolic Thickness 1.8 cm 0.6 - 1.0 / 0.6 - 0.9 cm LVPW Diastolic Thickness 1.7 cm 0.6 - 1.0 / 0.6 - 0.9 cm LV Relative Wall Thickness 0.7 RV Internal Dim ED PLAX 3.3 cm LA Systolic Diameter LX 4.5 cm 3.0 - 4.0 / 2.7 - 3.8 cm LA Volume 73.8 cm 18 - 58 / 22 - 52 cm M-MODE Aortic Root Diameter MM 3.7 cm MV E Point Septal Separation 1.0 cm AV Cusp Separation MM 1.2 cm DOPPLER AV Peak Velocity 277.6 cm/s AV Peak Gradient 30.8 mmHg AV Mean Velocity 199.2 cm/s AV Mean Gradient 17.8 mmHg AV Velocity Time Integral 56.8 cm LVOT Peak Velocity 87.1 cm/s LVOT Peak Gradient 3.0 mmHg MV Area PHT 6.9 cm MV Deceleration Time 175.5 ms TR Peak Velocity 233.6 cm/s TR Peak Gradient 21.8 mmHg Right Ventricular Systolic Press 36.8 mmHg FINDINGS Left Ventricle Severely increased left ventricular wall thickness. Left ventricular ejection fraction is estimated at 40-45 %. Right Ventricle Mild right ventricular dilatation. Mild pulmonary hypertension. Right Atrium Normal right atrial size. Left Atrium Mildly increased left atrial diameter. Moderately increased left atrial volume. Mildly increased left atrial area. Mitral Valve Mild mitral annular calcification. Aortic Valve Trace to mild aortic regurgitation. . Mild aortic stenosis with a peak gradient of 31 mmHg and a mean gradient of 18 mmHg. Tricuspid Valve Mild tricuspid regurgitation. Pulmonic Valve Pulmonic valve not well visualized. Pericardium No pericardial effusion. Aorta Normal size aortic root and proximal ascending aorta. CONCLUSIONS Started E revealed some left ventricle which is at upper limits of normal. There is mild concentric LVH. Ejection fraction is about 50% by visual inspection. Both atria are enlarged. There is aortic valve stenosis with a mild degree. There is mitral calcification. No pericardial effusion mild mitral and tricuspid insufficiency noted Previewed by: Dr. Lynette Aguilar MD (Electronically Signed) Final Date: 15 June 2021 17:13
[2021-06-15] MEDS: IPRATROPIUM-ALBUTEROL 3 ML NEB INHALATION PRN (22:51)
[2021-06-15] MEDS: methylPREDNISolone SOD SUCCI 125 MG/2 ML VIAL IVP SCH (23:21)
[2021-06-16] MEDS: IPRATROPIUM-ALBUTEROL 3 ML NEB INHALATION PRN (03:53)
[2021-06-16] MEDS: carvediloL 12.5 MG TAB PO SCH (05:12)
[2021-06-16] MEDS: methylPREDNISolone SOD SUCCI 125 MG/2 ML VIAL IVP SCH ×4 (05:12→23:21)
[2021-06-16 07:50] LABS: Calcium 8.4 mg/dL (8.4-10.2); Potassium 4.6 mmol/L (3.5-5.1)
[2021-06-16] MEDS: APIXABAN 5 MG TAB PO SCH ×2 (08:07→20:25)
[2021-06-16] MEDS: FUROSEMIDE 10 MG/ML 4 ML VIAL IV SCH ×3 (08:08→23:21)
[2021-06-16] MEDS: IPRATROPIUM-ALBUTEROL 3 ML NEB INHALATION SCH ×4 (08:20→19:39)
--- NOTE | 2021-06-16 13:38 | P.PN ---
Subjective HISTORY OF PRESENT ILLNESS: Patient examined this morning the intensive care unit. Patient is sitting up in the chair. Patient denies chest pain or pressure. He reports improvement in his shortness of breath. He does report a frequent productive cough this morning. He remains on IV Lasix 40 mg every 8 hours. Lower extremity edema is improving. Telemetry reveals atrial fibrillation with a heart rate in the 80s. He remains on IV Cardizem. 06/16/2021 patient examined this morning at the bedside. Patient denies chest pain or pressure. He denies palpitations. He denies shortness of breath but does report a frequent productive cough. He has been started on IV steroids. He remains on IV Lasix. Telemetry reveals atrial fibrillation with uncontrolled ventricular rate. Echocardiogram completed revealing ejection fraction 40-45%. PHYSICAL EXAM: VITAL SIGNS: Reviewed. GENERAL: Well-developed in no acute distress. NECK: Supple. No JVD or thyromegaly LUNGS: Respirations even and unlabored. Lungs diminished with expiratory wheezing HEART: Irregular rate and rhythm. S1 and S2 heard. EXTREMITIES: Normal range of motion. No clubbing or cyanosis. Peripheral pulses intact. 2+ bilateral lower extremity edema ASSESSMENT: New-onset paroxysmal atrial fibrillation with RVR New-onset congestive heart failure, type unknown, echo pending Acute COPD exacerbation PLAN: Continue IV Lasix Monitor kidney function Accurate I&O Daily weights discontinue carvedilol. Begin metoprolol 50 mg twice a day Continue telemetry monitoring Further recommendations pending patient course Nurse practitioner note has been reviewed by physician. Signing provider agrees with the documented findings, assessment, and plan of care. Objective - Vital Signs Vital signs: Vital Signs Temp 96.4 F L 06/16/21 04:00 Pulse 90 06/16/21 12:00 Resp 16 06/16/21 12:00 BP 120/79 06/16/21 12:00 Pulse Ox 94 L 06/16/21 12:00 Intake & Output 06/15/21 06/16/21 06/16/21 18:59 06:59 18:59 Intake Total 242.417 780 Output Total 500 600 Balance -257.583 180 Weight 157.7 kg Intake: Intake, IV Titration 122.417 Amount Diltiazem 125 mg In 122.417 Sodium Chloride 0.9% 100 ml @ 5 MG/HR 5 mls/hr IV .Q24H [facility] Rx#:[id number] Oral 120 780 Output: Urine 500 600 Other: Voiding Method Toilet Toilet Urinal Urinal # Voids 550 - Labs CBC & Chem 7: 06/15/21 06:40 06/16/21 06:20 Labs: Abnormal Lab Results - Last 24 Hours (Table) 06/16/21 Range/Units 06:20 Sodium 132 L (137-145) mmol/L Chloride 92 L (98-107) mmol/L BUN 27 H (9-20) mg/dL Creatinine 1.26 H (0.66-1.25) mg/dL Glucose 167 H (74-99) mg/dL
--- NOTE | 2021-06-16 13:59 | P.PN ---
Subjective Progress Note Date: 06/16/21 patient has no new complaints today. He reports improvement in breathing. HRs better controlled. Still requiring IV diuretics per cardiology. Gen: awake, alert HEENT: normocephalic, atraumatic, good hearing acuity, moist mucous membranes Resp: good air exchange, breathing comfortably with no accessory muscle use CVS: good distal perfusion x 4, positive JVD GI: soft, NTTP, ND : no SPT, no CVAT, villalba catheter notpresent MSK: positive pitting edema, no clubbing Neuro: non-focal, moving all extremities Psych: cooperative, euthymic mood Assessment/plan: Shortness of breath, suspected multifactorial secondary to A. fib with components of CHF -Follow-up proBNP -Echocardiogram -Cardiology consult -Cardizem gtt is off, now on metoprolol for rate control -Continue Lasix IV 40 mg every 12 hourly -Monitor electrolytes -Heparin infusion replaced with eliquis -DuoNeb's -Cardiac monitoring DVT prophylaxis -Heparin infusion The patient is admitted with an anticipated greater than 2 midnight stay for evaluation of Afib with rvr CODE STATUS: Full Code Discussed with: Patient Anticipated discharge date: 06/[address]: Home Objective - Vital Signs Vital signs: Vital Signs Temp 96.4 F L 06/16/21 04:00 Pulse 90 06/16/21 12:00 Resp 16 06/16/21 12:00 BP 120/79 06/16/21 12:00 Pulse Ox 94 L 06/16/21 12:00 Intake & Output 06/15/21 06/16/21 06/16/21 18:59 06:59 18:59 Intake Total 242.417 780 Output Total 500 600 Balance -257.583 180 Weight 157.7 kg Intake: Intake, IV Titration 122.417 Amount Diltiazem 125 mg In 122.417 Sodium Chloride 0.9% 100 ml @ 5 MG/HR 5 mls/hr IV .Q24H [facility] Rx#:[id number] Oral 120 780 Output: Urine 500 600 Other: Voiding Method Toilet Toilet Urinal Urinal # Voids 550 - Labs CBC & Chem 7: 06/15/21 06:40 06/16/21 06:20 Labs: Abnormal Lab Results - Last 24 Hours (Table) 06/16/21 Range/Units 06:20 Sodium 132 L (137-145) mmol/L Chloride 92 L (98-107) mmol/L BUN 27 H (9-20) mg/dL Creatinine 1.26 H (0.66-1.25) mg/dL Glucose 167 H (74-99) mg/dL
[2021-06-16] MEDS: METOPROLOL TARTRATE 50 MG TAB PO SCH ×2 (16:06→20:28)
[2021-06-16 16:35] LABS: Glucose,Whole Blood 147 mg/dL (75-99)
[2021-06-16] MEDS: INSULIN ASPART (NovoLOG) 100 UNIT/ML VIAL SQ SCH ×2 (19:10→20:25)
[2021-06-16 19:59] LABS: Glucose,Whole Blood 179 mg/dL (75-99)
[2021-06-16] MEDS: ATORVASTATIN 10 MG TAB PO SCH (20:25)
[2021-06-17] MEDS: methylPREDNISolone SOD SUCCI 125 MG/2 ML VIAL IVP SCH (04:59)
[2021-06-17 05:49] LABS: Glucose,Whole Blood 174 mg/dL (75-99)
[2021-06-17 05:55] LABS: Calcium 8.7 mg/dL (8.4-10.2); Potassium 4.3 mmol/L (3.5-5.1)
[2021-06-17] MEDS: INSULIN ASPART (NovoLOG) 100 UNIT/ML VIAL SQ SCH ×4 (06:27→20:21)
[2021-06-17] MEDS: IPRATROPIUM-ALBUTEROL 3 ML NEB INHALATION SCH ×4 (07:52→20:03)
[2021-06-17] MEDS: LOSARTAN 25 MG TAB PO SCH (09:17)
[2021-06-17] MEDS: FUROSEMIDE 10 MG/ML 4 ML VIAL IV SCH ×3 (09:17→20:37)
[2021-06-17] MEDS: METOPROLOL TARTRATE 25 MG TAB PO SCH ×2 (09:17→20:20)
[2021-06-17] MEDS: APIXABAN 5 MG TAB PO SCH ×2 (09:17→20:20)
[2021-06-17] MEDS: guaiFENesin 600 MG TABLET.ER PO SCH ×2 (10:40→20:20)
[2021-06-17] MEDS: predniSONE 20 MG TAB PO SCH (10:40)
[2021-06-17] MEDS: DIGOXIN 250 MCG TAB PO SCH (10:41)
[2021-06-17 11:47] LABS: Glucose,Whole Blood 162 mg/dL (75-99)
--- NOTE | 2021-06-17 12:05 | P.PN ---
Subjective Progress Note Date: 06/17/21 HISTORY OF PRESENT ILLNESS: Patient examined this morning the intensive care unit. Patient is sitting up in the chair. Patient denies chest pain or pressure. He reports improvement in his shortness of breath. He does report a frequent productive cough this morning. He remains on IV Lasix 40 mg every 8 hours. Lower extremity edema is improving. Telemetry reveals atrial fibrillation with a heart rate in the 80s. He remains on IV Cardizem. 06/16/2021 patient examined this morning at the bedside. Patient denies chest pain or pressure. He denies palpitations. He denies shortness of breath but does report a frequent productive cough. He has been started on IV steroids. He remains on IV Lasix. Telemetry reveals atrial fibrillation with uncontrolled ventricular rate. Echocardiogram completed revealing ejection fraction 40-45%. 06/17/2021 Patient examined this morning at the bedside. Patient denies chest pain or pressure. He reports shortness of breath has improved. He also reports improvement in his cough. He remains in atrial fibrillation with a heart rate around 100. PHYSICAL EXAM: VITAL SIGNS: Reviewed. GENERAL: Well-developed in no acute distress. NECK: Supple. No JVD or thyromegaly LUNGS: Respirations even and unlabored. Lungs diminished HEART: Irregular rate and rhythm. S1 and S2 heard. EXTREMITIES: Normal range of motion. No clubbing or cyanosis. Peripheral pulses intact. 1+ bilateral lower extremity edema ASSESSMENT: New-onset paroxysmal atrial fibrillation with RVR New-onset congestive heart failure, type unknown, echo pending Acute COPD exacerbation PLAN: Continue IV Lasix. Decrease dosage to every 12 hours Monitor kidney function Accurate I&O Daily weights Increase metoprolol to 75 mg twice a day Continue telemetry monitoring Further recommendations pending patient course Nurse practitioner note has been reviewed by physician. Signing provider agrees with the documented findings, assessment, and plan of care. Objective - Vital Signs Vital signs: Vital Signs Temp 98.2 F 06/17/21 08:00 Pulse 100 06/17/21 11:53 Resp 18 06/17/21 08:00 BP 106/56 06/17/21 08:00 Pulse Ox 96 06/17/21 08:00 Intake & Output 06/16/21 06/17/21 06/17/21 18:59 06:59 18:59 Intake Total 900 120 Output Total 600 Balance 300 120 Weight 157 kg Intake: Oral 900 120 Output: Urine 600 Other: Voiding Method Toilet Toilet Toilet Urinal Urinal Urinal - Labs CBC & Chem 7: 06/15/21 06:40 06/17/21 04:39 Labs: Abnormal Lab Results - Last 24 Hours (Table) 06/16/21 06/16/21 06/17/21 Range/Units 16:33 19:48 04:39 Sodium 133 L (137-145) mmol/L Chloride 90 L (98-107) mmol/L Carbon Dioxide 37 H (22-30) mmol/L BUN 32 H (9-20) mg/dL Glucose 164 H (74-99) mg/dL POC Glucose (mg/dL) 147 H 179 H (75-99) mg/dL 06/17/21 06/17/21 Range/Units 05:47 11:45 Sodium (137-145) mmol/L Chloride (98-107) mmol/L Carbon Dioxide (22-30) mmol/L BUN (9-20) mg/dL Glucose (74-99) mg/dL POC Glucose (mg/dL) 174 H 162 H (75-99) mg/dL
[2021-06-17 16:36] LABS: Glucose,Whole Blood 155 mg/dL (75-99)
[2021-06-17 19:36] LABS: Glucose,Whole Blood 152 mg/dL (75-99)
[2021-06-17] MEDS: ATORVASTATIN 10 MG TAB PO SCH (20:20)
--- NOTE | 2021-06-17 22:05 | P.PN ---
Subjective Progress Note Date: 06/17/21 (delayed charting seen at 1010) Principal diagnosis: shortness of breath Patient is a 76-year-old male for history of COPD, dyslipidemia, arthritis, and morbid obesity who presented to the ER with complaints of shortness of breath. In the ER he underwent an extensive evaluation. He was ultimately found to have A. fib with RVR and acute exacerbation of CHF and COPD. He was admitted and started on a Cardizem infusion, Lasix, and heparin. Cardiology was consulted. He is also started on steroids for possible COPD exacerbation. He underwent an echocardiogram which showed ejection fraction of 40-45%. He was transitioned off his Cardizem drip and onto Lopressor which was uptitrated. He again had runs of A. fib with RVR and digoxin was added. He responded well to steroids for his COPD exacerbation. Patient seen and examined at bedside. He is feeling well. He feels as though his shortness of breath is much improved. He feels good and wants to go home. We discussed that he still appears to be fluid overloaded and has slight wheezing that we suggest him stay until tomorrow. Patient is in agreement. All questions answered. General: non toxic, no distress, appears at stated age Derm: warm, dry Head: atraumatic, normocephalic, symmetric Eyes: EOMI, no lid lag, anicteric sclera Mouth: no lip lesion, mucus membranes moist Cardiovascular: S1S2 reg, no murmur, positive posterior tibial pulse bilateral, Lungs: Wheezing left base , no accessory muscle use Abdominal: soft, nontender to palpation, no guarding, no appreciable organomegaly Ext: no gross muscle atrophy, 1+ edema, no contractures Neuro: CN II-XI grossly intact, no focal neuro deficits Psych: Alert, oriented, appropriate affect Assessment/plan: A. fib with rapid ventricular response Acute exacerbation of systolic congestive heart failure -Cardiology recommendations -Lasix dosing decrease -Strict I's and O's, daily weights -Metoprolol increased -Continue with digoxin Acute exacerbation of COPD -Continue with bronchodilators. No indication for antibiotic at this time -Add Mucinex -Wean from IV to oral steroids. Morbid obesity -Outpatient structured weight loss Chronic: Dyslipidemia JLUIS Anticipate home in a.m. Objective - Vital Signs Vital signs: Vital Signs Temp 97.8 F 04/28/22 19:50 Pulse 104 H 06/17/21 20:15 Resp 22 06/17/21 19:50 BP 122/74 06/17/21 19:50 Pulse Ox 94 L 06/17/21 19:50 Intake & Output 06/17/21 06/17/21 06/18/21 06:59 18:59 06:59 Intake Total 360 Balance 360 Weight 157 kg Intake: Oral 360 Other: Voiding Method Toilet Toilet Toilet Urinal Urinal Urinal - Labs CBC & Chem 7: 06/15/21 06:40 06/17/21 04:39 Labs: Abnormal Lab Results - Last 24 Hours (Table) 06/17/21 06/17/21 06/17/21 Range/Units 04:39 05:47 11:45 Sodium 133 L (137-145) mmol/L Chloride 90 L (98-107) mmol/L Carbon Dioxide 37 H (22-30) mmol/L BUN 32 H (9-20) mg/dL Glucose 164 H (74-99) mg/dL POC Glucose (mg/dL) 174 H 162 H (75-99) mg/dL 06/17/21 06/17/21 Range/Units 16:34 19:34 Sodium (137-145) mmol/L Chloride (98-107) mmol/L Carbon Dioxide (22-30) mmol/L BUN (9-20) mg/dL Glucose (74-99) mg/dL POC Glucose (mg/dL) 155 H 152 H (75-99) mg/dL
[2021-06-18 05:57] LABS: Glucose,Whole Blood 123 mg/dL (75-99)
[2021-06-18 05:59] LABS: HCT 43.8 % (39.0-53.0); Hypochromasia Slight; MCH 26.1 pg (25.0-35.0); MCHC 29.7 g/dL (31.0-37.0); Mean Platelet Volume 8.3; Platelet Count 210 k/uL (150-450); RBC 4.97 m/uL (4.30-5.90); RDW 13.7 % (11.5-15.5); WBC 9.1 k/uL (3.8-10.6)
[2021-06-18] MEDS: INSULIN ASPART (NovoLOG) 100 UNIT/ML VIAL SQ SCH ×4 (06:14→21:26)
[2021-06-18 06:18] LABS: Calcium 8.3 mg/dL (8.4-10.2); Magnesium 2.2 mg/dL (1.6-2.3); Potassium 4.1 mmol/L (3.5-5.1)
[2021-06-18] MEDS: IPRATROPIUM-ALBUTEROL 3 ML NEB INHALATION SCH ×4 (07:38→19:54)
[2021-06-18] MEDS: APIXABAN 5 MG TAB PO SCH ×2 (08:52→21:26)
[2021-06-18] MEDS: DIGOXIN 250 MCG TAB PO SCH (08:52)
[2021-06-18] MEDS: guaiFENesin 600 MG TABLET.ER PO SCH ×2 (08:52→21:27)
[2021-06-18] MEDS: predniSONE 20 MG TAB PO SCH (08:52)
[2021-06-18] MEDS: METOPROLOL TARTRATE 25 MG TAB PO SCH (08:52)
[2021-06-18] MEDS: LOSARTAN 25 MG TAB PO SCH (08:52)
[2021-06-18] MEDS: FUROSEMIDE 10 MG/ML 4 ML VIAL IV SCH (08:53)
[2021-06-18] MEDS ORDERED: METOPROLOL TARTRATE 25 MG TAB PO STA (08:55)
--- NOTE | 2021-06-18 11:23 | P.PN ---
Subjective Progress Note Date: 06/18/21 HISTORY OF PRESENT ILLNESS: Patient examined this morning the intensive care unit. Patient is sitting up in the chair. Patient denies chest pain or pressure. He reports improvement in his shortness of breath. He does report a frequent productive cough this morning. He remains on IV Lasix 40 mg every 8 hours. Lower extremity edema is improving. Telemetry reveals atrial fibrillation with a heart rate in the 80s. He remains on IV Cardizem. 06/16/2021 patient examined this morning at the bedside. Patient denies chest pain or pressure. He denies palpitations. He denies shortness of breath but does report a frequent productive cough. He has been started on IV steroids. He remains on IV Lasix. Telemetry reveals atrial fibrillation with uncontrolled ventricular rate. Echocardiogram completed revealing ejection fraction 40-45%. 06/17/2021 Patient examined this morning at the bedside. Patient denies chest pain or pressure. He reports shortness of breath has improved. He also reports improvement in his cough. He remains in atrial fibrillation with a heart rate around 100. 06/18/2021 Patient examined this morning at the bedside. Patient denies chest pain or pressure. He currently denies shortness of breath. He continues to have a frequent cough. He remains in atrial fibrillation with controlled ventricular rate. Patient did have some episodes of RVR overnight. PHYSICAL EXAM: VITAL SIGNS: Reviewed. GENERAL: Well-developed in no acute distress. NECK: Supple. No JVD or thyromegaly LUNGS: Respirations even and unlabored. Lungs diminished HEART: Irregular rate and rhythm. S1 and S2 heard. EXTREMITIES: Normal range of motion. No clubbing or cyanosis. Peripheral pulses intact. 1+ bilateral lower extremity edema ASSESSMENT: New-onset paroxysmal atrial fibrillation with RVR New-onset congestive heart failure with pEF, borderline or intermediate Acute COPD exacerbation PLAN: Discontinue IV lasix. Begin oral Lasix 40 mg daily Monitor kidney function Accurate I&O Daily weights increase metoprolol to 100 mg twice a day Continue telemetry monitoring Further recommendations pending patient course Nurse practitioner note has been reviewed by physician. Signing provider agrees with the documented findings, assessment, and plan of care. Objective - Vital Signs Vital signs: Vital Signs Temp 97.9 F 06/18/21 08:00 Pulse 108 H 06/18/21 08:00 Resp 22 04/29/22 08:00 BP 126/74 06/18/21 08:00 Pulse Ox 96 06/18/21 08:00 Intake & Output 06/17/21 06/18/21 06/18/21 18:59 06:59 18:59 Intake Total 360 240 Balance 360 240 Weight 156.6 kg Intake: Oral 360 240 Other: Voiding Method Toilet Toilet Toilet Urinal Urinal Urinal - Labs CBC & Chem 7: 06/18/21 05:50 06/18/21 05:50 Labs: Abnormal Lab Results - Last 24 Hours (Table) 06/17/21 06/17/21 06/17/21 Range/Units 11:45 16:34 19:34 MCHC (31.0-37.0) g/dL Sodium (137-145) mmol/L Chloride (98-107) mmol/L Carbon Dioxide (22-30) mmol/L BUN (9-20) mg/dL Glucose (74-99) mg/dL POC Glucose (mg/dL) 162 H 155 H 152 H (75-99) mg/dL Calcium (8.4-10.2) mg/dL 06/18/21 06/18/21 06/18/21 Range/Units 05:50 05:50 05:55 MCHC 29.7 L (31.0-37.0) g/dL Sodium 134 L (137-145) mmol/L Chloride 92 L (98-107) mmol/L Carbon Dioxide 36 H (22-30) mmol/L BUN 39 H (9-20) mg/dL Glucose 146 H (74-99) mg/dL POC Glucose (mg/dL) 123 H (75-99) mg/dL Calcium 8.3 L (8.4-10.2) mg/dL
[2021-06-18 11:49] LABS: Glucose,Whole Blood 122 mg/dL (75-99)
[2021-06-18] MEDS: DOXYCYCLINE 100 MG CAP PO SCH ×2 (12:21→21:27)
[2021-06-18] MEDS: polyethylene glycoL 3350 17 GM POWD.PACK PO SCH (12:21)
--- NOTE | 2021-06-18 15:19 | P.PN ---
Subjective Progress Note Date: 06/18/21 (delayed charting seen at 1130) Principal diagnosis: shortness of breath Patient is a 76-year-old male with history of COPD, dyslipidemia, arthritis, and morbid obesity who presented to the ER with complaints of shortness of breath. In the ER he underwent an extensive evaluation. He was ultimately found to have A. fib with RVR and acute exacerbation of CHF and COPD. He was admitted and started on a Cardizem infusion, Lasix, and heparin. Cardiology was consulted. He is also started on steroids for possible COPD exacerbation. He underwent an echocardiogram which showed ejection fraction of 40-45%. He was transitioned off his Cardizem drip and onto Lopressor which was uptitrated. He again had runs of A. fib with RVR and digoxin was added. He responded well to steroids for his COPD exacerbation. He continued to have high heart rates and his metoprolol as up titrated. Patient seen and examined at bedside. He is having some cough today with clear to brown sputum. He states breathing is stable but mucus and cough are worse than normal. General: non toxic, no distress, appears at stated age, obese Derm: warm, dry Head: atraumatic, normocephalic, symmetric Eyes: EOMI, no lid lag, anicteric sclera Mouth: no lip lesion, mucus membranes moist Cardiovascular: S1S2 irreg, no murmur, positive posterior tibial pulse bilateral, Lungs: Wheezing with ronchi bilateral , no accessory muscle use Abdominal: soft, nontender to palpation, no guarding, no appreciable organomegaly Ext: no gross muscle atrophy, 1+ edema, no contractures Neuro: CN II-XI grossly intact, no focal neuro deficits Psych: Alert, oriented, appropriate affect Assessment/plan: A. fib with rapid ventricular response Acute exacerbation of systolic congestive heart failure -Cardiology recommendations -Lasix to PO -Strict I's and O's, daily weights -Metoprolol increased again -Continue with digoxin -Eliquis Acute exacerbation of COPD -Continue with bronchodilators -Increased mucus so add digoxin -Mucinex -Prednisone Morbid obesity -Outpatient structured weight loss Chronic: Dyslipidemia JLUIS Anticipate home in a.m. if HR improved. Active Medications Generic Name Dose Route Start Last Admin Trade Name Freq PRN Reason Stop Dose Admin Acetaminophen 650 mg 06/14/21 00:26 Acetaminophen Tab 325 Mg Tab PO Q6HR PRN Mild Pain or Fever > 100.5 Albuterol/Ipratropium 3 ml 06/14/21 00:37 06/16/21 03:53 Ipratropium-Albuterol 3 Ml Neb INHALATION 3 ml RT-QID PRN Administration Shortness Of Breath Or Wheezing Albuterol/Ipratropium 3 ml 06/14/21 08:00 06/18/21 11:28 Ipratropium-Albuterol 3 Ml Neb INHALATION 3 ml RT-QID J CARLOS Administration Apixaban 5 mg 06/14/21 13:15 06/18/21 08:52 Apixaban 5 Mg Tab PO 5 mg BID J CARLOS Administration Protocol Atorvastatin Calcium 10 mg 06/16/21 21:00 06/17/21 20:20 Atorvastatin 10 Mg Tab PO 10 mg HS J CARLOS Administration Benzonatate 100 mg 06/18/21 11:24 Benzonatate 100 Mg Cap PO TID PRN Cough Digoxin 250 mcg 06/17/21 10:00 06/18/21 08:52 Digoxin 250 Mcg Tab PO 250 mcg DAILY J CARLOS Administration Doxycycline Monohydrate 100 mg 06/18/21 11:30 06/18/21 12:21 Doxycycline 100 Mg Cap PO 100 mg BID J CARLOS Administration Protocol Furosemide 40 mg 06/19/21 09:00 Furosemide 40 Mg Tab PO DAILY J CARLOS Guaifenesin 600 mg 06/17/21 10:15 06/18/21 08:52 Guaifenesin 600 Mg Tablet.Er PO 600 mg Q12HR J CARLOS Administration Insulin Aspart 0 unit 06/16/21 17:30 06/18/21 12:23 Insulin Aspart (Novolog) 100 Unit/Ml Vial SQ Not Given ACHS J CARLOS Protocol Losartan Potassium 25 mg 06/17/21 09:00 06/18/21 08:52 Losartan 25 Mg Tab PO 25 mg DAILY J CARLOS Administration Metoprolol Tartrate 100 mg 06/18/21 21:00 Metoprolol Tartrate 50 Mg Tab PO BID J CARLOS Naloxone HCl 0.2 mg 06/14/21 00:26 Naloxone 0.4 Mg/Ml 1 Ml Vial IV Q2M PRN Opioid Reversal Polyethylene Glycol 17 gm 06/18/21 10:15 06/18/21 12:21 Polyethylene Glycol 3350 17 Gm Powd.Pack PO 17 gm DAILY J CARLOS Administration Prednisone 60 mg 06/17/21 10:15 06/18/21 08:52 Prednisone 20 Mg Tab PO 60 mg DAILY J CARLOS Administration Objective - Vital Signs Vital signs: Vital Signs Temp 98.0 F 06/18/21 12:00 Pulse 110 H 06/18/21 12:00 Resp 18 06/18/21 12:00 BP 116/68 06/18/21 12:00 Pulse Ox 94 L 06/18/21 12:00 Intake & Output 06/17/21 06/18/21 06/18/21 18:59 06:59 18:59 Intake Total 360 480 Balance 360 480 Weight 156.6 kg Intake: Oral 360 480 Other: Voiding Method Toilet Toilet Toilet Urinal Urinal Urinal - Labs CBC & Chem 7: 06/18/21 05:50 06/18/21 05:50 Labs: Abnormal Lab Results - Last 24 Hours (Table) 06/17/21 06/17/21 06/18/21 Range/Units 16:34 19:34 05:50 MCHC 29.7 L (31.0-37.0) g/dL Sodium (137-145) mmol/L Chloride (98-107) mmol/L Carbon Dioxide (22-30) mmol/L BUN (9-20) mg/dL Glucose (74-99) mg/dL POC Glucose (mg/dL) 155 H 152 H (75-99) mg/dL Calcium (8.4-10.2) mg/dL 06/18/21 06/18/21 06/18/21 Range/Units 05:50 05:55 11:47 MCHC (31.0-37.0) g/dL Sodium 134 L (137-145) mmol/L Chloride 92 L (98-107) mmol/L Carbon Dioxide 36 H (22-30) mmol/L BUN 39 H (9-20) mg/dL Glucose 146 H (74-99) mg/dL POC Glucose (mg/dL) 123 H 122 H (75-99) mg/dL Calcium 8.3 L (8.4-10.2) mg/dL
[2021-06-18 16:30] LABS: Glucose,Whole Blood 153 mg/dL (75-99)
[2021-06-18 20:10] LABS: Glucose,Whole Blood 178 mg/dL (75-99)
[2021-06-18] MEDS: METOPROLOL TARTRATE 50 MG TAB PO SCH (21:27)
[2021-06-18] MEDS: ATORVASTATIN 10 MG TAB PO SCH (21:27)
[2021-06-18] MEDS: BENZONATATE 100 MG CAP PO PRN (21:27)
[2021-06-19 05:59] LABS: Glucose,Whole Blood 111 mg/dL (75-99)
[2021-06-19] MEDS: INSULIN ASPART (NovoLOG) 100 UNIT/ML VIAL SQ SCH ×4 (06:46→20:47)
[2021-06-19] MEDS: IPRATROPIUM-ALBUTEROL 3 ML NEB INHALATION SCH ×4 (07:49→19:59)
[2021-06-19] MEDS: APIXABAN 5 MG TAB PO SCH ×2 (08:14→20:48)
[2021-06-19] MEDS: guaiFENesin 600 MG TABLET.ER PO SCH ×2 (08:15→20:48)
[2021-06-19] MEDS: METOPROLOL TARTRATE 50 MG TAB PO SCH ×2 (08:15→20:48)
[2021-06-19] MEDS: predniSONE 20 MG TAB PO SCH (08:15)
[2021-06-19] MEDS: LOSARTAN 25 MG TAB PO SCH (08:15)
[2021-06-19] MEDS: polyethylene glycoL 3350 17 GM POWD.PACK PO SCH (08:17)
[2021-06-19] MEDS: DOXYCYCLINE 100 MG CAP PO SCH ×2 (08:17→20:48)
[2021-06-19] MEDS: DIGOXIN 250 MCG TAB PO SCH (08:18)
[2021-06-19] MEDS: BENZONATATE 100 MG CAP PO PRN ×3 (08:23→20:48)
[2021-06-19] MEDS ORDERED: FUROSEMIDE 40 MG TAB PO SCH (09:00)
[2021-06-19 09:54] LABS: Calcium 8.5 mg/dL (8.4-10.2); Magnesium 2.1 mg/dL (1.6-2.3)
--- NOTE | 2021-06-19 11:03 | P.PN ---
Subjective Progress Note Date: 06/19/21 Patient is examined this morning sitting in the bedside chair. Doing well up and walking around the room. He denies chest pain or increased shortness of breath. His cough is also improved. He remains in atrial fibrillation with a controlled ventricle rate. His heart rate has been better controlled. He still had short episodes of RVR. Patient will be started on amiodarone. Patient is on digoxin 250 mg daily and Lopressor 100 mg twice a day, Lasix 40 mg by mouth. He has noted bilateral wheezing. He is on Eliquis for anticoagulation. Objective - Vital Signs Vital signs: Vital Signs Temp 97.1 F L 06/19/21 08:00 Pulse 98 06/19/21 08:00 Resp 16 06/19/21 08:00 BP 106/68 06/19/21 08:00 Pulse Ox 93 L 06/19/21 08:00 Intake & Output 06/18/21 06/19/21 06/19/21 18:59 06:59 18:59 Intake Total 720 120 Balance 720 120 Intake: Oral 720 120 Other: Voiding Method Toilet Toilet Toilet Urinal Urinal Urinal - Exam PHYSICAL EXAM: VITAL SIGNS: Reviewed. GENERAL: Well-developed in no acute distress. HEENT: Head is normocephalic. Pupils are equal, round. Sclerae anicteric. Mucous membranes of the mouth are moist. NECK: Supple. No JVD or thyromegaly RESPIRATORY: Respirations even and unlabored. Bilateral wheezes to auscultation CARDIO: Regular rate and rhythm. S1 and S2 heard. No murmur or gallops. EXTREMITIES: Normal range of motion. No clubbing or cyanosis. Peripheral pulses intact. Negative for bilateral lower extremity edema NEURO: Orientated to person, time, mood is appropriate - Labs CBC & Chem 7: 06/18/21 05:50 06/19/21 09:04 Labs: Abnormal Lab Results - Last 24 Hours (Table) 06/18/21 06/18/21 06/18/21 Range/Units 11:47 16:29 20:09 Sodium (137-145) mmol/L Chloride (98-107) mmol/L Carbon Dioxide (22-30) mmol/L BUN (9-20) mg/dL Glucose (74-99) mg/dL POC Glucose (mg/dL) 122 H 153 H 178 H (75-99) mg/dL 06/19/21 06/19/21 Range/Units 05:58 09:04 Sodium 136 L (137-145) mmol/L Chloride 93 L (98-107) mmol/L Carbon Dioxide 33 H (22-30) mmol/L BUN 38 H (9-20) mg/dL Glucose 183 H (74-99) mg/dL POC Glucose (mg/dL) 111 H (75-99) mg/dL Assessment and Plan Assessment: New-onset paroxysmal atrial fibrillation with RVR New-onset congestive heart failure with pEF, borderline or intermediate Acute COPD exacerbation Plan: Start amiodarone Continue with all other current cardiac medications Monitor kidney function Accurate I&O Daily weights Continue telemetry monitoring Further recommendations pending patient course Nurse practitioner note has been reviewed by physician. Signing provider agrees with the documented findings, assessment, and plan of care.
[2021-06-19] MEDS: AMIODARONE 200 MG TAB PO SCH ×2 (11:14→20:48)
[2021-06-19 11:28] LABS: Glucose,Whole Blood 153 mg/dL (75-99)
--- NOTE | 2021-06-19 14:27 | P.PN ---
Subjective Progress Note Date: 06/19/21 Principal diagnosis: shortness of breath Patient is a 76-year-old male with history of COPD, dyslipidemia, arthritis, and morbid obesity who presented to the ER with complaints of shortness of breath. In the ER he underwent an extensive evaluation. He was ultimately found to have A. fib with RVR and acute exacerbation of CHF and COPD. He was admitted and started on a Cardizem infusion, Lasix, and heparin. Cardiology was consulted. He is also started on steroids for possible COPD exacerbation. He underwent an echocardiogram which showed ejection fraction of 40-45%. He was transitioned off his Cardizem drip and onto Lopressor which was up titrated. He again had runs of A. fib with RVR and digoxin was added. He responded well to steroids for his COPD exacerbation. He continued to have high heart rates and his metoprolol was up titrated. He continued To have runs of A. fib with RVR overnight on 06/18 including any time he had movement. Patient seen and examined at bedside. He is now bringing up more sputum, feels as though his breathing is better, he is having some increased lower extremity edema. He can tell his heart rate goes up whenever he is up or ambulating. We discussed that he will need to be monitored an additional 24 hours to achieve optimal heart rate control. General: non toxic, no distress, appears at stated age, obese Derm: warm, dry Head: atraumatic, normocephalic, symmetric Eyes: EOMI, no lid lag, anicteric sclera Mouth: no lip lesion, mucus membranes moist Cardiovascular: S1S2 irreg, no murmur, positive posterior tibial pulse bilateral, Lungs: ronchi bilateral , no accessory muscle use Abdominal: soft, nontender to palpation, no guarding, no appreciable organomegaly Ext: no gross muscle atrophy, 2+ edema, no contractures Neuro: CN II-XI grossly intact, no focal neuro deficits Psych: Alert, oriented, appropriate affect Assessment/plan: A. fib with rapid ventricular response Acute exacerbation of systolic congestive heart failure -Cardiology recommendations -Lasix increased to twice daily -Strict I's and O's, daily weights -Metoprolol and digoxin continued -Amiodarone added by cardiology -Telemetry -Eliquis Acute exacerbation of COPD -Continue with bronchodilators -Doxycycline day #2 -Mucinex -Prednisone Morbid obesity -Outpatient structured weight loss Chronic: Dyslipidemia JLUIS Anticipate home in a.m. if HR improved. Active Medications Generic Name Dose Route Start Last Admin Trade Name Freq PRN Reason Stop Dose Admin Acetaminophen 650 mg 06/14/21 00:26 Acetaminophen Tab 325 Mg Tab PO Q6HR PRN Mild Pain or Fever > 100.5 Albuterol/Ipratropium 3 ml 06/14/21 00:37 06/16/21 03:53 Ipratropium-Albuterol 3 Ml Neb INHALATION 3 ml RT-QID PRN Administration Shortness Of Breath Or Wheezing Albuterol/Ipratropium 3 ml 06/14/21 08:00 06/19/21 11:08 Ipratropium-Albuterol 3 Ml Neb INHALATION 3 ml RT-QID J CARLOS Administration Amiodarone HCl 400 mg 06/19/21 10:00 06/19/21 11:14 Amiodarone 200 Mg Tab PO 400 mg BID J CARLOS Administration Apixaban 5 mg 06/14/21 13:15 06/19/21 08:14 Apixaban 5 Mg Tab PO 5 mg BID J CARLOS Administration Protocol Atorvastatin Calcium 10 mg 06/16/21 21:00 06/18/21 21:27 Atorvastatin 10 Mg Tab PO 10 mg HS J CARLOS Administration Benzonatate 100 mg 06/18/21 11:24 06/19/21 08:23 Benzonatate 100 Mg Cap PO 100 mg TID PRN Administration Cough Digoxin 250 mcg 06/17/21 10:00 06/19/21 08:18 Digoxin 250 Mcg Tab PO 250 mcg DAILY J CARLOS Administration Doxycycline Monohydrate 100 mg 06/18/21 11:30 06/19/21 08:17 Doxycycline 100 Mg Cap PO 100 mg BID J CARLOS Administration Protocol Furosemide 40 mg 06/19/21 16:00 Furosemide 40 Mg Tab PO BID@0900,1600 J CARLOS Guaifenesin 600 mg 06/17/21 10:15 06/19/21 08:15 Guaifenesin 600 Mg Tablet.Er PO 600 mg Q12HR J CARLOS Administration Insulin Aspart 0 unit 06/16/21 17:30 06/19/21 11:44 Insulin Aspart (Novolog) 100 Unit/Ml Vial SQ 2 unit ACHS J CARLOS Administration Protocol Losartan Potassium 25 mg 06/17/21 09:00 06/19/21 08:15 Losartan 25 Mg Tab PO 25 mg DAILY J CARLOS Administration Metoprolol Tartrate 100 mg 06/18/21 21:00 06/19/21 08:15 Metoprolol Tartrate 50 Mg Tab PO 100 mg BID J CARLOS Administration Naloxone HCl 0.2 mg 06/14/21 00:26 Naloxone 0.4 Mg/Ml 1 Ml Vial IV Q2M PRN Opioid Reversal Polyethylene Glycol 17 gm 06/18/21 10:15 06/19/21 08:17 Polyethylene Glycol 3350 17 Gm Powd.Pack PO Not Given DAILY J CARLOS Prednisone 60 mg 06/17/21 10:15 06/19/21 08:15 Prednisone 20 Mg Tab PO 60 mg DAILY J CARLOS Administration Objective - Vital Signs Vital signs: Vital Signs Temp 97.1 F L 06/19/21 08:00 Pulse 100 06/19/21 12:00 Resp 17 06/19/21 12:00 BP 116/57 06/19/21 12:00 Pulse Ox 94 L 06/19/21 12:00 Intake & Output 06/18/21 06/19/21 06/19/21 18:59 06:59 18:59 Intake Total 720 120 Balance 720 120 Intake: Oral 720 120 Other: Voiding Method Toilet Toilet Toilet Urinal Urinal Urinal - Labs CBC & Chem 7: 06/18/21 05:50 06/19/21 09:04 Labs: Abnormal Lab Results - Last 24 Hours (Table) 06/18/21 06/18/21 06/19/21 Range/Units 16:29 20:09 05:58 Sodium (137-145) mmol/L Chloride (98-107) mmol/L Carbon Dioxide (22-30) mmol/L BUN (9-20) mg/dL Glucose (74-99) mg/dL POC Glucose (mg/dL) 153 H 178 H 111 H (75-99) mg/dL 06/19/21 06/19/21 Range/Units 09:04 11:27 Sodium 136 L (137-145) mmol/L Chloride 93 L (98-107) mmol/L Carbon Dioxide 33 H (22-30) mmol/L BUN 38 H (9-20) mg/dL Glucose 183 H (74-99) mg/dL POC Glucose (mg/dL) 153 H (75-99) mg/dL
[2021-06-19] MEDS: FUROSEMIDE 40 MG TAB PO SCH (15:52)
[2021-06-19 16:22] LABS: Glucose,Whole Blood 142 mg/dL (75-99)
[2021-06-19 20:12] LABS: Glucose,Whole Blood 157 mg/dL (75-99)
[2021-06-19] MEDS: ATORVASTATIN 10 MG TAB PO SCH (20:48)
[2021-06-20 05:55] LABS: Glucose,Whole Blood 117 mg/dL (75-99)
[2021-06-20] MEDS: INSULIN ASPART (NovoLOG) 100 UNIT/ML VIAL SQ SCH ×4 (06:03→21:08)
[2021-06-20 08:03] LABS: Calcium 8.5 mg/dL (8.4-10.2); Magnesium 2.2 mg/dL (1.6-2.3); Potassium 4.7 mmol/L (3.5-5.1)
[2021-06-20] MEDS: FUROSEMIDE 40 MG TAB PO SCH ×2 (08:34→16:47)
[2021-06-20] MEDS: LOSARTAN 25 MG TAB PO SCH (08:34)
[2021-06-20] MEDS: APIXABAN 5 MG TAB PO SCH ×2 (08:35→21:07)
[2021-06-20] MEDS: METOPROLOL TARTRATE 50 MG TAB PO SCH ×2 (08:35→21:08)
[2021-06-20] MEDS: guaiFENesin 600 MG TABLET.ER PO SCH ×2 (08:35→21:08)
[2021-06-20] MEDS: predniSONE 20 MG TAB PO SCH (08:35)
[2021-06-20] MEDS: DOXYCYCLINE 100 MG CAP PO SCH ×2 (08:35→21:07)
[2021-06-20] MEDS: DIGOXIN 250 MCG TAB PO SCH (08:35)
[2021-06-20] MEDS: AMIODARONE 200 MG TAB PO SCH ×2 (08:35→21:07)
[2021-06-20] MEDS: IPRATROPIUM-ALBUTEROL 3 ML NEB INHALATION SCH ×4 (08:47→21:38)
[2021-06-20] MEDS: polyethylene glycoL 3350 17 GM POWD.PACK PO SCH (08:57)
[2021-06-20 11:55] LABS: Glucose,Whole Blood 109 mg/dL (75-99)
--- NOTE | 2021-06-20 12:34 | P.PN ---
Subjective Progress Note Date: 06/20/21 Patient is seen today resting comfortably in the bedside chair. States he's been up walking around and doing well. He denies chest pain or increased shortness of breath. Upon physical examination he seems to have an increase in wheezing today. After reviewing patient's monitor strips he is still having uncontrolled heart rates in the 160 to 170s and controlled heart rate of 60 to 70s during the day. After thorough discussion with the patient he has severe sleep apnea and has recently stopped wearing his CPAP at home, and has not been wearing it here in the hospital. Due to the settings needed to be adjusted. Dr. An seen the patient and adjusted his home CPAP. It is believed that due to the patient not wearing his CPAP at night that is causing elevated heart rates while sleeping. Patient will wear his home CPAP tonight, we'll continue to monitor him for at least 24 hours and see if heart rate improves with the use of his CPAP. Patient is tolerating amiodarone, we will decrease amiodarone to 200 mg twice a day and discontinue digoxin. He is on Eliquis for anticoagulation. Objective - Vital Signs Vital signs: Vital Signs Temp 97.8 F 06/20/21 12:01 Pulse 90 06/20/21 12:01 Resp 18 06/20/21 12:01 BP 95/53 06/20/21 12:01 Pulse Ox 95 06/20/21 12:01 Intake & Output 06/19/21 06/20/21 06/20/21 18:59 06:59 18:59 Intake Total 240 598 Balance 240 598 Intake: Oral 240 598 Other: Voiding Method Toilet Toilet Toilet Urinal Urinal Urinal - Exam PHYSICAL EXAM: VITAL SIGNS: Reviewed. GENERAL: Well-developed in no acute distress. HEENT: Head is normocephalic. Pupils are equal, round. Sclerae anicteric. Mucous membranes of the mouth are moist. NECK: Supple. No JVD or thyromegaly RESPIRATORY: Respirations even and unlabored. Bilateral wheezes to auscultation CARDIO: Regular rate and rhythm. S1 and S2 heard. No murmur or gallops. EXTREMITIES: Normal range of motion. No clubbing or cyanosis. Peripheral pulses intact. Negative for bilateral lower extremity edema NEURO: Orientated to person, time, mood is appropriate - Labs CBC & Chem 7: 06/18/21 05:50 06/20/21 07:04 Labs: Abnormal Lab Results - Last 24 Hours (Table) 06/19/21 06/19/21 06/20/21 Range/Units 16:20 20:10 05:52 Sodium (137-145) mmol/L Chloride (98-107) mmol/L Carbon Dioxide (22-30) mmol/L BUN (9-20) mg/dL Glucose (74-99) mg/dL POC Glucose (mg/dL) 142 H 157 H 117 H (75-99) mg/dL 06/20/21 06/20/21 Range/Units 07:04 11:53 Sodium 136 L (137-145) mmol/L Chloride 95 L (98-107) mmol/L Carbon Dioxide 33 H (22-30) mmol/L BUN 39 H (9-20) mg/dL Glucose 112 H (74-99) mg/dL POC Glucose (mg/dL) 109 H (75-99) mg/dL Assessment and Plan Assessment: New-onset paroxysmal atrial fibrillation with RVR New-onset congestive heart failure with pEF, borderline or intermediate Acute COPD exacerbation Obstructive sleep apnea Plan: Decrease amiodarone to 200 mg twice a day Discontinue digoxin A she is to wear his home CPAP while sleeping Continue with all other current cardiac medications Monitor kidney function Accurate I&O Daily weights Continue telemetry monitoring for 24 hours Further recommendations pending patient course Nurse practitioner note has been reviewed by physician. Signing provider agrees with the documented findings, assessment, and plan of care.
[2021-06-20 16:23] LABS: Glucose,Whole Blood 215 mg/dL (75-99)
--- NOTE | 2021-06-20 17:44 | P.PN ---
Subjective Progress Note Date: 06/20/21 (delayed charting) Principal diagnosis: shortness of breath Patient is a 76-year-old male with history of COPD, dyslipidemia, arthritis, and morbid obesity who presented to the ER with complaints of shortness of breath. In the ER he underwent an extensive evaluation. He was ultimately found to have A. fib with RVR and acute exacerbation of CHF and COPD. He was admitted and started on a Cardizem infusion, Lasix, and heparin. Cardiology was consulted. He is also started on steroids for possible COPD exacerbation. He underwent an echocardiogram which showed ejection fraction of 40-45%. He was transitioned off his Cardizem drip and onto Lopressor which was up titrated. He again had runs of A. fib with RVR and digoxin was added. He responded well to steroids for his COPD exacerbation. He continued to have high heart rates and his metoprolol was up titrated. He continued To have runs of A. fib with RVR overnight on 06/18 including any time he had movement. Patient seen and examined at bedside. He has not been complient with Bipap in some time, his breathing at night is bad and he thinks this might be the problem. He has no chest pain, states that his breathing is at baseline. Has CPAP here and Dr. Bolivar was kind enough to adjust the humidity for him to see if he can tolerate it. General: non toxic, no distress, appears at stated age, obese Derm: warm, dry Head: atraumatic, normocephalic, symmetric Eyes: EOMI, no lid lag, anicteric sclera Mouth: no lip lesion, mucus membranes moist Cardiovascular: S1S2 irreg, no murmur, positive posterior tibial pulse bilateral, Lungs: ronchi bilateral , no accessory muscle use Abdominal: soft, nontender to palpation, no guarding, no appreciable organomegaly Ext: no gross muscle atrophy,1+ edema, no contractures Neuro: CN II-XI grossly intact, no focal neuro deficits Psych: Alert, oriented, appropriate affect Assessment/plan: A. fib with rapid ventricular response Acute exacerbation of systolic congestive heart failure -Cardiology recommendations -Lasix -Strict I's and O's, daily weights -Metoprolol and digoxin continued -Amiodarone -Telemetry -Eliquis - use of CPAP at night, suspect RVR at night due to untreated JLUIS as he has not been wearing his CPAP in 1 year, but he just brought it to the hospital. Acute exacerbation of COPD -Continue with bronchodilators -Doxycycline day #3 -Mucinex -Prednisone Morbid obesity -Outpatient structured weight loss Chronic: Dyslipidemia JLUIS- use CPAP tonight Anticipate home in a.m. if HR improved. Active Medications Generic Name Dose Route Start Last Admin Trade Name Freq PRN Reason Stop Dose Admin Acetaminophen 650 mg 06/14/21 00:26 Acetaminophen Tab 325 Mg Tab PO Q6HR PRN Mild Pain or Fever > 100.5 Albuterol/Ipratropium 3 ml 06/14/21 00:37 06/16/21 03:53 Ipratropium-Albuterol 3 Ml Neb INHALATION 3 ml RT-QID PRN Administration Shortness Of Breath Or Wheezing Albuterol/Ipratropium 3 ml 06/14/21 08:00 06/20/21 16:31 Ipratropium-Albuterol 3 Ml Neb INHALATION 3 ml RT-QID J CARLOS Administration Amiodarone HCl 200 mg 06/20/21 21:00 Amiodarone 200 Mg Tab PO BID J CARLOS Apixaban 5 mg 06/14/21 13:15 06/20/21 08:35 Apixaban 5 Mg Tab PO 5 mg BID J CARLOS Administration Protocol Atorvastatin Calcium 10 mg 06/16/21 21:00 06/19/21 20:48 Atorvastatin 10 Mg Tab PO 10 mg HS J CARLOS Administration Benzonatate 100 mg 06/18/21 11:24 06/19/21 20:48 Benzonatate 100 Mg Cap PO 100 mg TID PRN Administration Cough Doxycycline Monohydrate 100 mg 06/18/21 11:30 06/20/21 08:35 Doxycycline 100 Mg Cap PO 100 mg BID J CARLOS Administration Protocol Furosemide 40 mg 06/19/21 16:00 06/20/21 16:47 Furosemide 40 Mg Tab PO 40 mg BID@0900,1600 J CARLOS Administration Guaifenesin 600 mg 06/17/21 10:15 06/20/21 08:35 Guaifenesin 600 Mg Tablet.Er PO 600 mg Q12HR J CARLOS Administration Insulin Aspart 0 unit 06/16/21 17:30 06/20/21 17:09 Insulin Aspart (Novolog) 100 Unit/Ml Vial SQ Not Given ACHS J CARLOS Protocol Losartan Potassium 25 mg 06/17/21 09:00 06/20/21 08:34 Losartan 25 Mg Tab PO 25 mg DAILY J CARLOS Administration Metoprolol Tartrate 100 mg 06/18/21 21:00 06/20/21 08:35 Metoprolol Tartrate 50 Mg Tab PO 100 mg BID J CARLOS Administration Naloxone HCl 0.2 mg 06/14/21 00:26 Naloxone 0.4 Mg/Ml 1 Ml Vial IV Q2M PRN Opioid Reversal Polyethylene Glycol 17 gm 06/18/21 10:15 06/20/21 08:57 Polyethylene Glycol 3350 17 Gm Powd.Pack PO Not Given DAILY J CARLOS Prednisone 60 mg 06/17/21 10:15 06/20/21 08:35 Prednisone 20 Mg Tab PO 60 mg DAILY J CARLOS Administration Objective - Vital Signs Vital signs: Vital Signs Temp 97.8 F 06/20/21 16:00 Pulse 88 06/20/21 16:43 Resp 18 06/20/21 16:00 BP 104/64 06/20/21 16:00 Pulse Ox 94 L 06/20/21 16:00 Intake & Output 06/19/21 06/20/21 06/20/21 18:59 06:59 18:59 Intake Total 240 718 Balance 240 718 Intake: Oral 240 718 Other: Voiding Method Toilet Toilet Toilet Urinal Urinal Urinal - Labs CBC & Chem 7: 06/18/21 05:50 06/20/21 07:04 Labs: Abnormal Lab Results - Last 24 Hours (Table) 06/19/21 06/20/21 06/20/21 Range/Units 20:10 05:52 07:04 Sodium 136 L (137-145) mmol/L Chloride 95 L (98-107) mmol/L Carbon Dioxide 33 H (22-30) mmol/L BUN 39 H (9-20) mg/dL Glucose 112 H (74-99) mg/dL POC Glucose (mg/dL) 157 H 117 H (75-99) mg/dL 06/20/21 06/20/21 Range/Units 11:53 16:21 Sodium (137-145) mmol/L Chloride (98-107) mmol/L Carbon Dioxide (22-30) mmol/L BUN (9-20) mg/dL Glucose (74-99) mg/dL POC Glucose (mg/dL) 109 H 215 H (75-99) mg/dL
[2021-06-20 20:18] LABS: Glucose,Whole Blood 168 mg/dL (75-99)
[2021-06-20] MEDS: ATORVASTATIN 10 MG TAB PO SCH (21:07)
[2021-06-21 06:30] LABS: Glucose,Whole Blood 123 mg/dL (75-99)
[2021-06-21] MEDS: INSULIN ASPART (NovoLOG) 100 UNIT/ML VIAL SQ SCH ×2 (06:31→12:04)
[2021-06-21] MEDS: guaiFENesin 600 MG TABLET.ER PO SCH (08:19)
[2021-06-21] MEDS: LOSARTAN 25 MG TAB PO SCH (08:19)
[2021-06-21] MEDS: FUROSEMIDE 40 MG TAB PO SCH (08:19)
[2021-06-21] MEDS: METOPROLOL TARTRATE 50 MG TAB PO SCH (08:19)
[2021-06-21] MEDS: AMIODARONE 200 MG TAB PO SCH (08:19)
[2021-06-21] MEDS: APIXABAN 5 MG TAB PO SCH (08:19)
[2021-06-21] MEDS: predniSONE 20 MG TAB PO SCH (08:19)
[2021-06-21] MEDS: DOXYCYCLINE 100 MG CAP PO SCH (08:19)
[2021-06-21] MEDS: polyethylene glycoL 3350 17 GM POWD.PACK PO SCH (08:20)
[2021-06-21] MEDS: IPRATROPIUM-ALBUTEROL 3 ML NEB INHALATION SCH ×2 (08:55→12:26)
[2021-06-21 10:08] VITALS: RESP 20; TEMP 97.5
[2021-06-21 11:23] LABS: Glucose,Whole Blood 153 mg/dL (75-99)
[2021-06-21 11:40] VITALS: BP 108/71
--- NOTE | 2021-06-21 12:19 | P.PN ---
Subjective This is a 76 year old male with a past medical history of COPD, hypertension, dyslipidemia, arthritis, obesity. He does not follow with a hemodialysis rn. We are following patient for atrial fibrillation with RVR and congestive heart failure. Patient examined this morning on 3S. Patient is sitting up in the chair. Patient denies chest pain or pressure. He reports improvement in his shortness of breath. He has been transitioned to PO Lasix 40mg BID. Lower extremity edema has significantly improved. Telemetry reveals atrial fibrillation with a heart rate in the 60s-80s. He remains on amiodarone 200 mg twice a day, Eliquis 5 mg twice a day, atorvastatin 10 mg nightly, losartan 25 mg daily, metoprolol tartrate 100 mg twice a day. PHYSICAL EXAM: VITAL SIGNS: Reviewed. GENERAL: Well-developed in no acute distress. NECK: Supple. No JVD or thyromegaly LUNGS: Respirations even and unlabored. Lungs diminished in bases bilaterally HEART: Irregular rate and rhythm. S1 and S2 heard. EXTREMITIES: Normal range of motion. No clubbing or cyanosis. Peripheral pulses intact. trace bilateral lower extremity edema ASSESSMENT: New-onset paroxysmal atrial fibrillation with RVR [id number] score recommends anticoagulation New-onset congestive heart failure with preserved EF, intermediate 40-45% Acute COPD exacerbation PLAN: From a cardiology perspective, patient rates are controlled. He is tolerating PO lasix well. Continue anticoagulation with Eliquis We recommend continuing current medical therapy as noted above, Taper inst ructions for amiodarone placed in discharge and patient can be discharged today and follow up outpatient with Dr. Gage. Nurse practitioner note has been reviewed by physician. Signing provider agrees with the documented findings, assessment, and plan of care. Objective - Vital Signs Vital signs: Vital Signs Temp 97.5 F L 06/21/21 11:39 Pulse 61 06/21/21 11:39 Resp 20 06/21/21 11:39 BP 108/71 06/21/21 11:39 Pulse Ox 94 L 06/21/21 11:39 Intake & Output 06/20/21 06/21/21 06/21/21 18:59 06:59 18:59 Intake Total 838 540 Balance 838 540 Intake: Oral 838 540 Other: Voiding Method Toilet Toilet Urinal Urinal - Labs CBC & Chem 7: 06/18/21 05:50 05/01/22 07:04 Labs: Abnormal Lab Results - Last 24 Hours (Table) 06/20/21 06/20/21 06/21/21 Range/Units 16:21 20:03 06:15 POC Glucose (mg/dL) 215 H 168 H 123 H (75-99) mg/dL 06/21/21 Range/Units 11:21 POC Glucose (mg/dL) 153 H (75-99) mg/dL
[2021-06-21 12:34] VITALS: BMI 52.4
[2021-06-21 12:41] VITALS: PULSE 75
--- NOTE | 2021-06-21 20:53 | P.DS ---
Providers Date of admission: 06/14/21 00:26 Expected date of discharge: 06/21/21 Attending physician: Von Valadez MD Consults: 06/14/21 00:27 Consult Physician Routine Consulting Provider: Storm Ramos Consult Reason/Comments: A-fib Do you want consulting provider notified?: Yes 06/15/21 22:33 Consult Physician Urgent Consulting Provider: Jeanette An Consult Reason/Comments: COPD Do you want consulting provider notified?: Yes Primary care physician: Jeanette An Hospital Course: Discharge Diagnosis: A. fib with rapid ventricular response Acute exacerbation of systolic congestive heart failure, EF 40-45% Acute exacerbation of COPD Morbid obesity Dyslipidemia JLUIS- use CPAP Hospital Course: Patient is a 76-year-old male with history of COPD, dyslipidemia, arthritis, and morbid obesity who presented to the ER with complaints of shortness of breath. In the ER he underwent an extensive evaluation. He was ultimately found to have A. fib with RVR and acute exacerbation of CHF and COPD. He was admitted and started on a Cardizem infusion, Lasix, and heparin. Cardiology was consulted. He is also started on steroids for possible COPD exacerbation. He underwent an echocardiogram which showed ejection fraction of 40-45%. He was transitioned off his Cardizem drip and onto Lopressor which was up titrated. He again had runs of A. fib with RVR and digoxin was added. He responded well to steroids for his COPD exacerbation. He continued to have high heart rates and his metoprolol was up titrated. He continued To have runs of A. fib with RVR overnight on 06/18 including any time he had movement. He was started on amio. It was discovered that he has not been wearing his CPAP for quite some time due to drooling. As most of his runs of A. fib or at night he was asked to bring in his CPAP machine. Once he was on this at night his A. fib was better controlled. He was determined stable for outpatient follow-up. Follow-up: Dr. Rivero in 1 week, cardiology in the outpatient setting, Dr. An for further adjustments of his CPAP. Patient is aware of the importance of taking all medications as prescribed and wearing his CPAP. Patient seen and examined at bedside. Vital signs reviewed and stable. General: non toxic, no distress, appears at stated age Derm: warm, dry Head: atraumatic, normocephalic, symmetric Eyes: EOMI, no lid lag, anicteric sclera Mouth: no lip lesion, mucus membranes moist Cardiovascular: S1S2 irreg, no murmur, positive posterior tibial pulse bilat eral, Lungs: Coarse breath sounds bilateral, no rhonchi, no rales , no accessory muscle use Abdominal: soft, nontender to palpation, no guarding, no appreciable organomegaly Ext: no gross muscle atrophy, no edema, no contractures Neuro: CN II-XI grossly intact, no focal neuro deficits Psych: Alert, oriented, appropriate affect A total of minutes of time were spent preparing this complex discharge summary . Patient Condition at Discharge: Stable Plan - Discharge Summary Discharge Rx Participant: No New Discharge Prescriptions: New Metoprolol Tartrate [Lopressor] 100 mg PO BID #60 tab Apixaban [Eliquis] 5 mg PO BID #60 tab Amiodarone [Cordarone] 200 mg PO BID #60 tab predniSONE [Deltasone] 60 mg PO DAILY #9 tab Furosemide [Lasix] 40 mg PO DAILY #30 tab guaiFENesin [Mucinex] 600 mg PO Q12HR #30 tablet Doxycycline [Vibramycin] 100 mg PO BID #5 cap Continue Simvastatin [Zocor] 20 mg PO HS Losartan Potassium [Cozaar] 25 mg PO DAILY Tiotropium [place] [Spiriva] 1 cap INHALATION RT-DAILY Albuterol Sulfate [Ventolin HFA] 2 puff INHALATION RT-Q4H PRN PRN Reason: Shortness Of Breath Discontinued Furosemide [Lasix] 20 mg PO Q48H carvediloL [Coreg] 3.125 mg PO BID Discharge Medication List Simvastatin [Zocor] 20 mg PO HS 12/28/16 [History] Albuterol Sulfate [Ventolin HFA] 2 puff INHALATION RT-Q4H PRN 06/14/21 [History] Apixaban [Eliquis] 5 mg PO BID #60 tab 06/14/21 [Rx] Losartan Potassium [Cozaar] 25 mg PO DAILY 06/14/21 [History] Tiotropium [place] [Spiriva] 1 cap INHALATION RT-DAILY 06/14/21 [History] Amiodarone [Cordarone] 200 mg PO BID #60 tab 06/21/21 [Rx] Doxycycline [Vibramycin] 100 mg PO BID #5 cap 06/21/21 [Rx] Furosemide [Lasix] 40 mg PO DAILY #30 tab 06/21/21 [Rx] Metoprolol Tartrate [Lopressor] 100 mg PO BID #60 tab 06/21/21 [Rx] guaiFENesin [Mucinex] 600 mg PO Q12HR #30 tablet 06/21/21 [Rx] predniSONE [Deltasone] 60 mg PO DAILY #9 tab 06/21/21 [Rx] Follow up Appointment(s)/Referral(s): Alejandro Rivero MD [REFERRING] - 1 Week (Office will call you with appointment information.) Georgia Luna MD [REFERRING] - 06/24/21 10:15 am (This appointment was already scheduled prior to hospitalization.) Roger Gage MD [STAFF PHYSICIAN] - 2 Weeks (OFFICE WILL CALL WITH DATE AND TIME) Jeanette An MD [Primary Care Provider] - 1-2 days (CALL OFFICE TO MAKE FOLLOW UP APPOINTMENT WHEN OPEN) Patient Instructions/Handouts: A-fib (Atrial Fibrillation) (DC), Heart Healthy Diet (DC), Low-Sodium Diet (DC), Fluid Restriction (DC) Activity/Diet/Wound Care/Special Instructions: Activity: as tolerated Diet: heart healthy, 2 gram sodium, 2L fluid restriction Special Instructions: Take weight daily, contact cardiology if you gain more than 3 pounds in a day or 5 pounds in 3 days Follow-up with Dr. An to have CPAP reviewed. Follow up with cook house laborer, Dr. Gage in 1-2 weeks. [place] copay $36.90 Thank you for trusting us with your care, we wish you well on your journey to better health. Cardiology instructions: AMIODARONE Taper Instructions Please take Amiodarone 200mg Twice a day (06/20/21- 06/27/21) Please take Amiodarone 200mg daily starting 06/28/21 Further changes per your cook house laborer Dr. Gage in the office. Discharge Disposition: HOME WITH HOME HEALTH SERVICES
== END 2021-06-21 13:59 | disposition home health service (06) | DRG 291 ==
LOC: EC 19:20 → 3SCARD 06-14 00:26 → 2SICU 06-14 15:49 → 3SCARD 06-15 15:28
PROVIDERS: ADMIT Internal Medicine; ATTEND Internal Medicine
DX: I11.0 Hypertensive heart disease with heart failure (principal); I50.23 Acute on chronic systolic (congestive) heart failure; Z68.43 Body mass index [BMI] 50.0-59.9, adult; I48.19 Other persistent atrial fibrillation; J44.1 Chronic obstructive pulmonary disease with (acute) exacerbation; E66.01 Morbid (severe) obesity due to excess calories; E78.5 Hyperlipidemia, unspecified; G47.33 Obstructive sleep apnea (adult) (pediatric); Z79.01 Long term (current) use of anticoagulants; Z79.82 Long term (current) use of aspirin; Z79.899 Other long term (current) drug therapy
CPT/HCPCS: 36415; 71046; 80048; 80053; 83605; 83735; 83880; 84443; 84484; 85025; 85027; 85610; 85730; 93005; 93306; 94640; 94760; 96365; 96366; 96368; 96375; 96376; 99291

== ENCOUNTER → 2022-03-22 | Outpatient (CLI) | payer MEDICARE ==
[2022-03-22 18:38] LABS: Basophils # (A) 0.05 X 10*3/uL (0.00-0.10); Basophils % (A) 0.5 %; Eosinophils # (A) 0.09 X 10*3/uL (0.04-0.35); HCT 48.1 % (39.6-50.0); HGB 14.4 g/dL (13.0-17.0); Immature Grans, Automated 1.1 %; Lymphocytes # (A) 2.19 X 10*3/uL (0.90-5.00); Lymphocytes % (A) 23.2 %; MCH 26.9 pg (27.0-32.0); MCHC 29.9 g/dL (32.0-37.0); MCV 89.9 fL (80.0-97.0); Mean Platelet Volume 11.7 fL (9.5-12.2); Monocytes # (A) 0.58 X 10*3/uL (0.20-1.00); Monocytes % (A) 6.2 %; NRBC Per 100 WBC 0 /100 WBCS (0.0-0.0); Neutrophils # (A) 6.42 X 10*3/uL (1.80-7.70); Platelet Count 223 X 10*3/uL (140-440); RBC 5.35 X 10*6/uL (4.40-5.60); RDW 17.1 % (11.5-14.5); WBC 9.43 X 10*3/uL (4.50-10.00)
[2022-03-22 18:50] LABS: African American GFR (CKD) 55.8 (60.0-200.0); Albumin 3.7 g/dL (3.8-4.9); Albumin/Globulin Ratio 1.37 (1.60-3.17); Anion Gap 14.5 mmol/L (10.00-18.00); BUN/Creat Ratio 9.5 Ratio (12.00-20.00); Blood Urea Nitrogen 13.3 mg/dL (9.0-27.0); Calcium 9.1 mg/dL (8.7-10.3); Carbon Dioxide 26.5 mmol/L (20.0-27.5); Globulin 2.7 g/dL (1.6-3.3); Non-African American GFR(CKD) 48.1 (60.0-200.0); Potassium 4.4 mmol/L (3.5-5.5); Total Bilirubin 0.8 mg/dL (0.30-1.20); Total Protein 6.4 g/dL (6.2-8.2)
[2022-03-22 19:24] LABS: Appearance,Urine Clear (Clear); Bilirubin,Urine Negative (Negative); Blood,Urine Negative (Negative); Color,Urine Yellow (Yellow); Ketones,Urine Negative (Negative); Nitrite,Urine Negative (Negative); PH, Urine 7.5 (5.0-8.0); Specific Gravity,Urine 1.012 (1.001-1.030); Urobilinogen,Urine 0.2 (0.2,1.0)
[2022-03-22 19:30] LABS: Bacteria,Urine None Seen /HPF (None Seen)
== END | disposition home or self-care (01) ==
LOC: LABPAT 11:40
PROVIDERS: ATTEND Urology
DX: Z01.812 Encounter for preprocedural laboratory examination (principal); N40.1 Benign prostatic hyperplasia with lower urinary tract symptoms; N13.8 Other obstructive and reflux uropathy; R31.29 Other microscopic hematuria
CPT/HCPCS: 80053; 81001; 85025; 87086